=== PATIENT | female | born 1950 | race Caucasian/White ===

== ENCOUNTER 2018-03-23 19:02 | Emergency (ER) | payer MEDICARE, OTHER, SELFPAY ==
[2018-03-23 19:02] VITALS: BP 159/79; PULSE 73; RESP 18; TEMP 36.6; O2SAT 99; BMI 25.9
--- NOTE | 2018-03-23 19:06 | RAD_ITS ---
STUDY: X-RAY CHEST REASON FOR EXAM: Female, 68 years old. Chest pain TECHNIQUE: Frontal view of the chest COMPARISON: 07/16/2016 FINDINGS: The lungs are clear. There are no pleural effusions. There is no pneumothorax. The heart is normal in size. Again noted is a spinal stimulator electrode. RAD/Chest 1 View (Portable) IMPRESSION: No acute thoracic pathology. Electronically Signed: Rikki Nelson, at 19:58 EST Tel , Service support ,
--- NOTE | 2018-03-23 19:06 | EKG12_ITS ---
Test Reason : CHEST PAIN Blood Pressure : / mmHG Vent. Rate : 072 BPM Atrial Rate : 072 BPM P-R Int : 132 ms QRS Dur : 082 ms QT Int : 388 ms P-R-T Axes : 098 038 051 degrees QTc Int : 424 ms Normal sinus rhythm Nonspecific ST abnormality Abnormal ECG Confirmed by ALEXIS GONZALEZ, XENIA ([id number]), photograph editor REA FLOOD ([id number]) on 03/26/2018 1:31:08 PM Referred By: YARELIS Confirmed By:XENIA ESPINOZA MD
[2018-03-23 19:22] LABS: Absolute Lymphocyte Count 3.14 X10^3/ul (0.83-4.51); Absolute Neutrophil Count 5.3 X10^3/uL (2.0-7.7); Basophil# 0.03 X10^3/uL; Basophil% 0.3 % (0-1); Eosinophil# 0.14 X10^3/uL; Eosinophils% 1.5 % (0-5); Hematocrit 43.2 % (37-47); Hemoglobin 14.6 g/dl (12.0-15.0); Lymphocyte # 3.14 X10^3/ul (4.0); Lymphocyte % 33.6 % (19-41); Mean Corp Hgb Conc 33.8 g/gl (32-36); Mean Corpuscular Hgb 30.3 pg (27.0-32.0); Mean Corpuscular Volume 89.6 fL (81-99); Mean Platelet Vol. 9.2 fl (6.2-12.0); Monocyte# 0.68 X10^3/uL; Monocyte% 7.3 % (0-10); Neutrophil # 5.34 X10^3/uL (2.7-7.7); Neutrophil % 57.2 % (47-70); Platelet Count 235 K/mm3 (150-450); RBC Distribution Width CV 12.5 % (11.6-14.6); RBC Distribution Width SD 39.5 fl (35.1-43.9); Red Blood Count 4.82 M/mm3 (4.2-5.4); White Blood Count 9.3 K/mm3 (4.4-11.0)
[2018-03-23 19:26] LABS: POSITIVE COUNT NO; POSITIVE DIFFERENTIAL NO; POSITIVE MORPHOLOGY NO
[2018-03-23 19:44] VITALS: BP 154/70; PULSE 67; RESP 14; O2SAT 96; O2SAT 97
[2018-03-23 19:45] LABS: Anion Gap 7 (5-15); BUN 19 mg/dL (7-18); BUN/Creat Ratio 16.4 RATIO (10-20); Calcium,Total 8.8 mg/dL (8.5-10.1); Chloride 103 mmol/L (98-107); Creatinine, Serum 1.16 mg/dL (0.55-1.02); EST Glomerular Filtration Rate 50 mL/min (>60); Est Glom Filt Rate - Afr Amer 60 mL/min (>60); Estimated Creatinine Clearance 42.93 ml/min; Glucose 132 mg/dL (74-106); Potassium 3.8 mmol/L (3.5-5.1); Sodium Level 136 mmol/L (136-145)
[2018-03-23 20:11] VITALS: BP 134/63; PULSE 59; RESP 23; O2SAT 97
[2018-03-23] MEDS: Mag Hydrox/Al Hydrox/Simeth 30 ML UDC PO (20:38)
[2018-03-23] MEDS: 0.9% Normal Saline 1,000 ML 150 ML IV (20:38)
[2018-03-23 21:00] VITALS: BP 150/55; PULSE 56; RESP 16; O2SAT 100
--- NOTE | 2018-03-23 21:00 | CT_ITS ---
STUDY: CTA CHEST REASON FOR EXAM: Female, 68 years old. Chest pain radiating to the back and neck RADIATION DOSAGE (If Supplied By Facility): CTDIvol = ( 12.40 ) mGy, DLP = ( 421.27 ) mGycm TECHNIQUE: The examination was performed with the intravenous administration of 75ML ml of Isovue 370 contrast material. Post-processing of the angiographic images was performed, with multiplanar reformation and 3D reconstruction. Individualized dose optimization techniques were used for this CT. COMPARISON: None. FINDINGS: Normal enhancement of the main pulmonary artery and right and left pulmonary arteries. Normal enhancement of the bilateral peripheral pulmonary arteries. There is no demonstrated pulmonary embolism. There is atherosclerotic calcification of the aortic arch with tortuosity. There is no demonstrated aortic dissection. Normal heart and pericardium. Normal mediastinum. Normal hilar regions. Normal visualized trachea and bronchi. The lungs are well expanded. There are bandlike parenchymal changes most consistent with atelectasis of the bilateral lungs. Normal pleura. Normal chest wall structures. Mild spondylosis of the thoracic spine. Neurostimulator device noted. The gallbladder is surgically absent. CT/CTA Chest W/WO Contrast IMPRESSION: 1. No central or segmental pulmonary embolism. No evidence of thoracic aortic aneurysm or dissection. Electronically Signed: Demond Urbina MD at 21:56 EST , Service support ,
[2018-03-23 22:06] VITALS: BP 117/58; PULSE 74; RESP 15; O2SAT 98
--- NOTE | 2018-03-23 22:07 | ED.DCSUM_ITS ---
- ER Visit Summary Date of Service: 03/23/18 Chief Complaint: Chest pain History of Present Illness: The patient is a 68 F he describes frequent burning in her upper abdomen for the past 1 week that would improve with Pepcid. Tonight pain was worsened and radiated up into the left chest and her neck. It also radiated into her back. Patient states pain is worsened with food and not with exertion. Pain was worse when she was lying down today and she could not get comfortable. Past history significant for reflux disease, sleep apnea, hypertension, high cholesterol, and back pain. She has had prior cholecystectomy. Physical Examination: Vital signs are unremarkable. Patient sitting upright in bed. She is in no acute distress but does appear uncomfortable. She is holding her epigastric area. Head neck examination is normal. Heart is regular rate and rhythm. Lungs sounds are clear. Abdomen is soft with tenderness in epigastric region. No guarding or rebound. Back examination was tenderness in the left thoracic paraspinals. No overlying skin changes. Neuro exam is normal. Test Results: EKG is sinus at 72 with no sign of acute ischemia. CBC and chemistry studies are grossly unremarkable. Troponin is less than 0.015. Portable chest x-ray is unremarkable. CTA of the chest shows no evidence of PE or dissection. Emergency Department Course and Treatment: Patient was given a GI cocktail and had complete resolution of her pain. Pain is exacerbated by food and not by activity. She will be placed on Protonix and will continue to monitor her symptoms. Treatment Plan: [] Disposition: Discharge Impression: Chest pain secondary to reflux disease This note was generated with [employer] dictation software. It may contain incorrect words, spelling, and punctuation that were not noted in review of the chart prior to signing ED Disposition - Plan for ED Patient: Disposition: Home or Assisted Living Chief Complaint: Chest Pain Instructions: ED Chest Pain Atypical Unkn Cause, ED GERD Prescriptions: Pantoprazole Sodium [Protonix] 40 mg PO DAILY #30 tablet Referrals: Kenia Jain DO [Primary Care Provider] - 1 Week
[2018-03-23 22:16] VITALS: BP 117/55; PULSE 62; RESP 17; O2SAT 98
--- NOTE | 2018-03-23 22:17 | ED.RN ---
PT GIVEN WRITTEN AND VERBAL DISCHARGE INSTRUCTIONS AND HOME GOING PRESCRIPTIONS. PT EDUCATED ON USE AND SIDE EFFECTS. PT VERBALIZES UNDERSTANDING. IV D/C AND COVERED WITH 2X2 GAUZE AND PAPER TAPE. PT DRESSES SELF AND AMBULATES OUT OF DEPT WITH .
== END 2018-03-23 22:18 | disposition home or self-care (01) ==
PROVIDERS: Emergency Provider Emergency Medicine; Family Provider Internal Medicine; PCP Internal Medicine
DX: K21.9 Gastro-esophageal reflux disease without esophagitis (principal); E78.00 Pure hypercholesterolemia, unspecified; I10 Essential (primary) hypertension; Z90.49 Acquired absence of other specified parts of digestive tract; G47.33 Obstructive sleep apnea (adult) (pediatric)
CPT/HCPCS: 71045; 71275; 80048; 84484; 85025; 93005; 99285; J7030; Q9967; A4216

== ENCOUNTER → 2018-06-09 11:27 | Outpatient (CLI) | payer MEDICARE, OTHER, SELFPAY ==
--- NOTE | 2018-06-09 11:31 | BD_ITS ---
STUDY: DUAL ENERGY X-RAY ABSORPTIOMETRY / DXA REASON FOR EXAM: Female, 68 years old. The patient is postmenopausal. Loss of height. TECHNIQUE: Bone Mineral Density (BMD) measurements of lumbar spine and bilateral hips were obtained. COMPARISON: Comparison is made with prior study dated March 04, 2016 and May 17, 2013. FINDINGS: Lumbar Spine (L1-L4): g/cm2 (1.213) / T-score (0.3) / Z-score (1.9) Findings are suggestive of normal bone density with a low fracture risk. Left Femur Total: g/cm2 (1.077) / T-score (0.5) / Z-score (1.8) Left Femoral Neck: g/cm2 (0.942) / T-score (-0.7) / Z-score (0.8) Right Femur Total: g/cm2 (1.038) / T-score (0.2) / Z-score (1.5) Right Femoral Neck: g/cm2 (0.916) / T-score (-0.9) / Z-score (0.6) The T-Scores on the most recent prior examination were: Lumbar Spine (L1-L4): There has been worsening of bone density since the previous examination. Left Femur Total: which represents a worsening of 2.8%. Right Femur Total: which represents a worsening of 7%. BD/Dexa Bone Density Study IMPRESSION: The patient is considered normal as outlined below according to World Zak Organization (WHO) criteria with a low fracture risk. There has been worsening of bone density since the previous examination. Reference Information: The T-score is the number of standard deviations above or below the standard which is normal for young adults at their peak bone mineral density. The World Health Organization (WHO) interprets the T-scores as follows: Above -1 Normal bone density Between -1 and -2.5 Osteopenia Equal to / or below -2.5 Osteoporosis As a practical clinical guideline, osteopenia may be graded as follows: Mild -1 through -1.5 Moderate -1.6 through -2.0 Severe -2.1 through -2.4 The Z-score is the number of standard deviations above or below age-matched controls. A Z-score of less than -1.5 would be considered abnormal. References: 1. NIH Osteoporosis and Related Bone Diseases http://www.osteo.org 2. International Society for Clinical Densitometry http://www.iscd.org 3. National Osteoporosis Foundation http://www.nof.org Electronically Signed: Zhou Amaro MD at 10:30 EST , Service support ,
--- NOTE | 2018-06-09 11:31 | BI_ITS ---
MAMMOGRAPHY - BILATERAL SCREENING REASON FOR EXAM: Female, 68 years old. Routine annual screening examination. PERTINENT HISTORY: Grandmother with breast cancer. Remote left stereotactic breast biopsy. Chronic inversion of the left nipple. TECHNIQUE: Digital bilateral breast ivett (3D mammographic acquisition) in the CC and MLO projections. 2-D mediolateral oblique (MLO) and craniocaudad (CC) views of both breasts were obtained. CAD: Full Field Digital Mammography with Computer Added Detection was performed. COMPARISON: Comparison is made with prior study dated April 16, 2017 and March 04, 2016. FINDINGS: Breast Composition: The breasts are heterogeneously dense, which may obscure small masses. There are no dominant masses or suspicious calcifications. Stable small bilateral axillary lymph nodes. Stable bilateral microcalcifications. No other significant abnormalities are identified. There has been no significant change since the prior study. BI/SCREENING MAMM (CAD), BILAT IMPRESSION: Stable bilateral screening mammogram. Yearly follow-up mammogram recommended. (A) ASSESSMENT CATEGORY: BIRADS Category 2: Benign. A letter regarding these results will be sent to the patient by the facility within 30 days. Approximately 10% of breast cancers are not detected by mammography. A normal mammogram should not delay biopsy of a clinically suspicious abnormality. [id number] Electronically Signed: Zhou Amaro MD at 14:18 EST , Service support ,
== END ==
PROVIDERS: Family Provider Internal Medicine; PCP Internal Medicine; Referring Provider Internal Medicine; Visit Provider Internal Medicine
DX: Z12.31 Encounter for screening mammogram for malignant neoplasm of breast (principal); Z78.0 Asymptomatic menopausal state
CPT/HCPCS: 77063; 77067; 77080

== ENCOUNTER → 2019-06-10 09:41 | Outpatient (CLI) | payer MEDICARE, OTHER, SELFPAY ==
--- NOTE | 2019-06-10 09:43 | BI_ITS ---
MAMMOGRAPHY - BILATERAL SCREENING 3-D TOMOSYNTHESIS REASON FOR EXAM: Female, 69 years old. FM HX MAT GMA 72, LT STEREO BX 2006, LT NIPPLE ALWAYS INVERTED PERTINENT HISTORY: No significant family history. TECHNIQUE: 2-D mammograms and 3-D Tomosynthesis of the breast (s) were performed. CAD was performed. COMPARISON: None. FINDINGS: The breast composition is heterogeneously dense that can obscure small breast masses. Stable cluster of calcifications in the central lateral right breast. No new dense spiculated masses or suspicious microcalcifications are identified. No architectural distortion is identified. There is no skin thickening or retraction. There has been no significant change since the prior study. BI/SCREEN MAMM (CAD) W/ANGELINE BILAT IMPRESSION: No mammographic signs of malignancy. Routine yearly mammograms recommended. ASSESSMENT CATEGORY: BIRADS Category 2: Benign. A letter regarding these results will be sent to the patient by the facility within 30 days. FOLLOW UP RECOMMENDATION: Yearly follow up mammogram recommended. (A) Approximately 10% of breast cancers are not detected by mammography. A normal mammogram should not delay biopsy of a clinically suspicious abnormality. Electronically Signed: Tom Copeland MD at 13:03 EST , Service support ,
== END ==
PROVIDERS: PCP Internal Medicine; Referring Provider Internal Medicine; Visit Provider Internal Medicine
DX: Z12.31 Encounter for screening mammogram for malignant neoplasm of breast (principal)
CPT/HCPCS: 77063; 77067

== ENCOUNTER → 2020-06-14 09:16 | Outpatient (CLI) | payer MEDICARE, OTHER, SELFPAY ==
--- NOTE | 2020-06-14 09:19 | BI_ITS ---
MAMMOGRAPHY - BILATERAL SCREENING REASON FOR EXAM: Female, 70 years old. Routine annual screening examination. PERTINENT HISTORY: Grandmother with breast cancer. Remote left stereotactic breast biopsy. TECHNIQUE: Digital bilateral breast angeline (3D mammographic acquisition) in the CC and MLO projections. 2-D mediolateral oblique (MLO) and craniocaudad (CC) views of both breasts were obtained. CAD: Full Field Digital Mammography with Computer Added Detection was performed. COMPARISON: Comparison is made with prior study dated 06/10/2019 and 06/09/2018. FINDINGS: Breast Composition: The breasts are heterogeneously dense, which may obscure small masses. There are no dominant masses or suspicious calcifications. Stable benign-appearing bilateral axillary lymph nodes. Stable scattered bilateral calcifications. No other significant abnormalities are identified. There has been no significant change since the prior study. BI/SCRN MAMM (CAD)W/ANGELINE BILAT IMPRESSION: Stable bilateral screening mammogram. Yearly follow-up mammogram recommended. (A) ASSESSMENT CATEGORY: BIRADS Category 2: Benign. A letter regarding these results will be sent to the patient by the facility within 30 days. Approximately 10% of breast cancers are not detected by mammography. A normal mammogram should not delay biopsy of a clinically suspicious abnormality. [id number] Electronically Signed: Zhou Amaro MD at 8:55 EST , Service support ,
--- NOTE | 2020-06-14 09:25 | BD_ITS ---
STUDY: DUAL ENERGY X-RAY ABSORPTIOMETRY / DXA REASON FOR EXAM: Female, 70 years old. GROUNDSKEEPING MAINTENANCE WORKER- EARLY AT 39 YRS OLD -- HX OF HRT- CONTROL -- HX OF TAKING STEROID NASAL SPRAY -- HX OF TAKING ANTISEIZURE MEDS IN PAST -- TAKES CALCIUM, MULTIVITAMIN AND VIT D -- DOES MODERATE AMOUNT OF EXERCISE -- HX OF RIB FXS, WRIST FX, FOOT FX, HAND FX, AND HUMERAL FX -- HAS THORACIC SPINAL CORD STIMULATOR -- ELFEGO OF 0.25 INCH TECHNIQUE: Bone Mineral Density (BMD) measurements of lumbar spine and bilateral hips were obtained. COMPARISON: Comparison is made with prior study dated 06/09/2018. FINDINGS: Lumbar Spine (L1-L4): g/cm2 (1.206) / T-score (0.2) / Z-score (1.9) Findings are suggestive of normal bone density with a low fracture risk. Left Femur Total: g/cm2 (1.083) / T-score (0.6) / Z-score (2.0) Left Femoral Neck: g/cm2 (0.922) / T-score (-0.8) / Z-score (0.8) Right Femur Total: g/cm2 (1.068) / T-score (0.5) / Z-score (1.8) Right Femoral Neck: g/cm2 (0.927) / T-score (-0.8) / Z-score (0.8) The T-Scores on the most recent prior examination were: Lumbar Spine (L1-L4): There has been worsening of bone density since the previous examination. Left Femur Total: which represents an improvement of 0.6%. Right Femur Total: which represents an improvement of 2.9%. BD/Dexa Bone Density Study IMPRESSION: The patient is considered normal as outlined below according to World Zak Organization (WHO) criteria with a low fracture risk. Reference Information: The T-score is the number of standard deviations above or below the standard which is normal for young adults at their peak bone mineral density. The World Health Organization (WHO) interprets the T-scores as follows: Above -1 Normal bone density Between -1 and -2.5 Osteopenia Equal to / or below -2.5 Osteoporosis As a practical clinical guideline, osteopenia may be graded as follows: Mild -1 through -1.5 Moderate -1.6 through -2.0 Severe -2.1 through -2.4 The Z-score is the number of standard deviations above or below age-matched controls. A Z-score of less than -1.5 would be considered abnormal. References: 1. NIH Osteoporosis and Related Bone Diseases www osteo.org 2. International Society for Clinical Densitometry www iscd.org 3. National Osteoporosis Foundation www nof.org Electronically Signed: Zhou Amaro MD at 14:35 EST , Service support ,
== END ==
PROVIDERS: PCP Internal Medicine; Referring Provider Internal Medicine; Visit Provider Internal Medicine
DX: Z12.31 Encounter for screening mammogram for malignant neoplasm of breast (principal); Z78.0 Asymptomatic menopausal state
CPT/HCPCS: 77063; 77067; 77080

== ENCOUNTER 2020-07-05 15:27 | Outpatient (RCR) | payer MEDICARE, OTHER, SELFPAY ==
[2020-07-03 10:00] VITALS: BMI 26.6
[2020-07-05] MEDS: COVID-19 VACC, MRNA(PFIZER)/PF 30 MCG/0.3 ML SYRINGE IM (09:49)
[2020-07-26] MEDS: COVID-19 VACC, MRNA(PFIZER)/PF 30 MCG/0.3 ML SYRINGE IM (09:55)
== END 2020-07-05 23:59 ==
LOC: IMMUN 15:27
PROVIDERS: PCP Internal Medicine; Visit Provider Family Medicine
DX: Z23 Encounter for immunization (principal)
CPT/HCPCS: 0001A; 0002A

== ENCOUNTER → 2020-07-16 11:43 | Outpatient (CLI) | payer MEDICARE, OTHER, SELFPAY ==
[2020-07-03 10:00] VITALS: BMI 26.6
[2020-07-16 15:26] LABS: Absolute Neutrophil Count 3.8 X10^3/uL (2.0-7.7); Basophil# 0.06 X10^3/uL; Basophil% 0.8 % (0-1); Eosinophil# 0.25 X10^3/uL; Eosinophils% 3.5 % (0-5); Hematocrit 42.9 % (37-47); Hemoglobin 13.4 g/dL (12.0-15.0); Lymphocyte % 32.4 % (19-41); Mean Corp Hgb Conc 31.2 g/dL (32-36); Mean Corpuscular Hgb 27.4 pg (27.0-32.0); Mean Corpuscular Volume 87.7 fL (81-99); Mean Platelet Vol. 10.4 fl (6.2-12.0); Monocyte# 0.68 X10^3/uL; Monocyte% 9.6 % (0-10); NRBC Flagged by Analyzer 0 % (0-5); Neutrophil # 3.78 X10^3/uL (2.7-7.7); Neutrophil % 53.4 % (47-70); Platelet Count 273 K/mm3 (150-450); RBC Distribution Width CV 13.1 % (11.6-14.6); RBC Distribution Width SD 41.8 fl (35.1-43.9); Red Blood Count 4.89 M/mm3 (4.2-5.4); White Blood Count 7.1 K/mm3 (4.4-11.0)
[2020-07-16 15:41] LABS: ALB/GLOB Ratio 1.1 RATIO (0.9-2.4); AST(SGOT) 22 U/L (15-37); Alanine Aminotransfer ALT/SGPT 26 U/L (13-56); Alkaline Phosphatase 79 U/L (45-117); Anion Gap 4 (5-15); BUN 24 mg/dL (7-18); BUN/Creat Ratio 21.1 RATIO (10-20); Calcium,Total 9.2 mg/dL (8.5-10.1); Chloride 106 mmol/L (98-107); Creatinine, Serum 1.14 mg/dL (0.55-1.02); EST Glomerular Filtration Rate 50 mL/min (>60); Est Glom Filt Rate - Afr Amer 61 mL/min (>60); Globulin 3.7 g/dL (2.2-4.2); Glucose 87 mg/dL (74-106); Potassium 4.8 mmol/L (3.5-5.1); Protein, Total 7.7 g/dL (6.4-8.2); Sodium Level 138 mmol/L (136-145)
== END ==
PROVIDERS: PCP Internal Medicine; Visit Provider Family Medicine
DX: Z01.818 Encounter for other preprocedural examination (principal)
CPT/HCPCS: 36415; 80053; 85025

== ENCOUNTER 2020-07-20 11:17 | Day surgery (SDC) | payer MEDICARE, OTHER, SELFPAY ==
[2020-07-03 10:00] VITALS: BMI 26.6
--- NOTE | 2020-07-19 10:06 | EKG12_ITS ---
Test Reason : PREOP Blood Pressure : / mmHG Vent. Rate : 061 BPM Atrial Rate : 061 BPM P-R Int : 120 ms QRS Dur : 088 ms QT Int : 402 ms P-R-T Axes : -02 021 041 degrees QTc Int : 404 ms Normal sinus rhythm Normal ECG Confirmed by ALEXIS GONZALEZ, XENIA ([id number]), slot editor DEV MONSON ([id number]) on 07/20/2020 9:20:35 AM Referred By: Daphne Lester Confirmed By:XENIA ESPINOZA MD
--- NOTE | 2020-07-20 11:27 | OP.PCM_ITS ---
Problem List (1) Fracture of fifth metatarsal bone of left foot Status: Acute Qualifiers: Encounter type: initial encounter Fracture type: closed Fracture alignment: nondisplaced Qualified Code(s): S92.355A - Nondisplaced fracture of fifth metatarsal bone, left foot, initial encounter for closed fracture (2) Foot pain, left Status: Acute Report of Operation Date of Procedure: 07/20/20 Pre-Operative Diagnosis: left 5th metatarsal fracture. pain left foot Post-Operative Diagnosis: same Surgery/Procedure Performed:: ORIF left 5th metatarsal Description of Surgical Findings:: hemostasis: ankle tourniquet 250mmHg suture: 2-0, 3-0 vicryl, 4-0 vicryl, 4-0 nylon local: 1% lidocaine plain and 0.5% bupivacaine plain in a 1:1 mix 10cc and 10cc 0.5% bupivacaine materials: [employer] 6-hole straight plate, 2.4 millimeter kreulock screw sizes 10, 10, 12, 12 helpdesk manager: Daphne Lester - Surgeon: Daphne Lester DPM, school bus driver/teacher assistant: Madhuri Hensley PGY2 Type of Anesthesia:: General, Local Specimen's removed: none Estimated Blood Loss (mL): <10cc Description of Procedure: Indications for procedure: patient is a 70-year-old female who presents to the office with complaints pain in her left foot pain after tripping over a dog toy and falling. Patient presented to urgent care where she was noted to have a fracture to her right fifth metatarsal neck in oblique fashion. Is was discussed with the patient to either treat this conservatively or operatively. After discussion of patient's current activity level and outcomes it was determined that she would best be served with surgical management as the capital fragment had already shifted with some in rotation and she is a rather active individual. Discussed all risk benefits alternatives and complications including but not limited to infection, delayed healing, nonhealing, need for further surgery. No guarantees were given applied. Patient agreed to proceed with the procedure. Description of the procedure: Patient was seen in the preoperative holding area where the chart was reviewed and patient was examined and all questions were answered to patient satisfaction. Patient was then transported to the OR and placed on the OR table in supine position. After administration of general anesthesia a well-padded ankle tourniquet was applied to the operative ankle. The operative foot and ankle were then prepped and draped in usual sterile fashion. The operative foot was then elevated and exsanguinated with an Esmarch bandage and the ankle tourniquet was inflated to 250 mmHg and then lowered down into the sterile field. Attention was then directed to the dorsal lateral aspect of the fifth metatarsal where skin scribe was utilized to draw out a 5 cm incision over the fracture site. This was then deepened down with a #15 blade through the epidural and dural layers into the subcutaneous tissue with all vital neurovascular structures retracted or cauterized as necessary. The fracture was then visualized and was broken up with a Dubois elevator. A curette was introduced in order to remove any hematoma from the site. There was noted to be minimal comminution. The fracture was then temporarily fixated and rotated with fracture fragments realigned. This alignment was fixated with a plate and screws from [employer] with the materials noted above. These were placed following standard AO technique with manufacturers service representative in the room. There is good compression across the fracture site. Placement of all hardware and alignment of the fracture were confirmed under fluoroscopy x-ray. The fracture was noted to be reduced and alignment of the bone and maintenance of the joint space were obtained. Site was then flushed with copious amounts of normal sterile saline and then closed in a layered suture fashion with Vicryl for deep closure and nylon for skin closure. Local anesthetic was not injected of the above amount and a reverse Reis block type fashion. The site was then dressed with Betadine soaked Adaptic, 4 x 4's, Kerlix, cast padding, posterior splint and Cam wrap. The ankle tourniquet was deflated with a prompt brisk hyperemic response noted to patient's operative foot. Patient was then transferred from the OR to PACU with vital signs stable and vascular status intact. Patient will be discharged with the following written and oral postoperative instructions: 1 patient is to keep dressing clean, dry, and intact 2 patient is to follow-up in office in [address] Lester 3 patient take all medications as prescribed 4 patient is to be nonweightbearing to the operative limb 5 patient is to watch for signs of infection including nausea, fever, vomiting, chills, chest pain, or shortness of breath and if seen patient is contact doctor's office or the emergency room. Patient is also contact doctor's office if there is any questions or concerns. It should be noted that a significant portion of the above procedure was performed by the attending physician with basic simple parts such as closure performed by the resident physician under the direct supervision of the attending physician - Complications none - Admit VTE Documentation VTE Present on Admission: Yes VTE Mechan Device Prophylaxis: SCD's VTE Pharm Prophylaxis ordered?: No Reason prophylaxis not ordered:: Treatment Not Indicated
--- NOTE | 2020-07-20 11:29 | DCINST_ITS ---
Discharge Diet: No Restrictions Discharge Activity: Use Walker Weight Bearing Status: No weight bearing Keep extremity elevated above heart level: Operative Extremity Call your doctor if your incision/area has: Sudden Increased Bleeding, Increased Pain/ Swelling, Increased Redness, Foul Smelling Discharge Call your doctor if you observe: Fever of 101 or Higher, Numbness or Tingling, Shortness of breath, Dizziness, Fainting spells, Increased palpitations (irregular heartbeat), Calf discomfort, Uncontrolled pain Cleanse incision/area with: Keep Dressing Clean & Dry Allergies/Adverse Reactions: Allergies prochlorperazine [From Compazine] Allergy (Verified 07/20/20 11:57) Laryngospasms trimethobenzamide [From Tigan] Allergy (Verified 07/20/20 11:57) Laryngospasms Pertussis Vaccines Adverse Reaction (Verified 07/20/20 11:57) Hives novacaine Allergy (Severe, Uncoded 07/20/20 11:57) Other seizures Medications to take at Discharge Buspirone HCl [Buspar] 15 mg PO TID 01/08/16 L.acidoph,Paracasei, B.lactis [Probiotic] 1 each PO TID 01/08/16 Lisinopril [Zestril] 5 mg PO BID 01/08/16 Melatonin 10 mg PO QHS 01/08/16 Omeprazole 40 mg PO DAILY 03/23/18 Polyethylene Glycol 3350 [Miralax] 1 dose PO DAILY 03/23/18 Simvastatin [Zocor] 20 mg PO QHS 03/23/18 Albuterol Aerosols [Ventolin Aerosols] 2.5 mg INHALATION Q6H PRN PRN 07/17/20 Famotidine [Pepcid] 20 mg PO QHS 07/17/20 Magnesium Oxide [Magnesium] 800 mg PO DAILY 07/17/20 Oxycodone HCl/Acetaminophen [Percocet 5-325 mg Tablet] 1 each PO Q6H PRN PRN 7 Days #28 tablet 07/20/20 The following prescriptions were given: Oxycodone HCl/Acetaminophen [Percocet 5-325 mg Tablet] 1 each PO Q6H PRN PRN 7 Days #28 tablet PRN Reason: Pain Score 6-10 Transmission Status: Received by [facility] Primary Care Physician: Kenia Jain DO [Primary Care Provider] - Test Results: Test results from this visit will be discussed in further detail at your follow- up appointment, if applicable. Please Follow Up With: Daphne Lester DPM When: 1 week Proposed Discharge Date: 07/20/20
[2020-07-20 12:00] VITALS: BP 126/56; PULSE 64; RESP 16; TEMP 36.7; O2SAT 100; BMI 27.3
[2020-07-20] MEDS: Lactated Ringers 1,000 ML 100 ML IV ×2 (12:16→14:15)
--- NOTE | 2020-07-20 13:00 | RAD_ITS ---
STUDY: X-RAY - LEFT FOOT CLINICAL: Female, 70 years old. ORIF, METATARSAL 5TH LEFT TECHNIQUE: 3 view(s) of the foot. COMPARISON: 07/03/2020 FINDINGS: 33 seconds of fluoroscopy of the left foot was utilized and operating room during open reduction internal fixation of fracture of the distal shaft of the fifth metatarsal bone and 8 images are submitted for interpretation.. RAD/Foot min 3 Views IMPRESSION: Fluoroscopy during the surgery. Electronically Signed: Dirk Barth MD at 16:09 EDT Tel , Service support ,
[2020-07-20] MEDS: Cefazolin 2 GM in 0.9% Normal Saline 100 ML IV (13:10)
[2020-07-20] MEDS: Bupivacaine Mpf 0.5% 30 ML VIAL (14:33)
[2020-07-20 14:57] VITALS: BP 126/56; BP 128/81; PULSE 94; RESP 18; TEMP 36; O2SAT 99
[2020-07-20 15:00] VITALS: BP 126/56; BP 146/89; PULSE 85; RESP 18; O2SAT 98
--- NOTE | 2020-07-20 15:05 | RAD_ITS ---
EXAM: XR LEFT FOOT COMPLETE, 3 OR MORE VIEWS CLINICAL INDICATION: post op TECHNIQUE: Frontal, lateral and oblique views of the left foot. This report was created using [employer] report generation technology. COMPARISON: 07/20/2020. FINDINGS: BONES/JOINTS: Fifth metatarsal fixation plate and screws. Gross radiographic alignment. Small calcaneal spur. Preservation of the joint space. No sclerotic or destructive changes observed. SOFT TISSUES: Unremarkable. No soft tissue swelling or gas. No radiopaque foreign body. RAD/Foot min 3 Views IMPRESSION: Fifth metatarsal fixation plate and screws. Gross radiographic alignment. Electronically Signed: Demond Urbina MD ([place]) at 15:14 EDT , Service support ,
[2020-07-20 15:15] VITALS: BP 117/98; BP 126/56; PULSE 90; RESP 18; O2SAT 100
[2020-07-20 15:32] VITALS: BP 126/56; BP 128/74; PULSE 72; RESP 18; TEMP 36.6; O2SAT 99
[2020-07-20 16:20] VITALS: BP 126/56; BP 150/64; PULSE 83; RESP 16; TEMP 37.1; O2SAT 99
== END 2020-07-20 17:10 | disposition home or self-care (01) ==
LOC: SDC 11:18 → AC 11:20
PROVIDERS: PCP Internal Medicine; Referring Provider Podiatrist Foot & Ankle Surgery; Visit Provider Podiatrist Foot & Ankle Surgery
PROC: (CPT 28485; principal; 2020-07-20 12:45)
DX: S92.355A Nondisplaced fracture of fifth metatarsal bone, left foot, initial encounter for closed fracture (principal); W01.0XXA Fall on same level from slipping, tripping and stumbling without subsequent striking against object, initial encounter; M79.672 Pain in left foot; I10 Essential (primary) hypertension; E78.5 Hyperlipidemia, unspecified; K21.9 Gastro-esophageal reflux disease without esophagitis; F41.1 Generalized anxiety disorder
CPT/HCPCS: 28485; 73630; 76000; 87426; 93005; C1713; C9803; J7120; J2405

== ENCOUNTER → 2021-01-01 10:14 | Outpatient (CLI) | payer MEDICARE, OTHER, SELFPAY ==
[2021-01-01 10:30] LABS: Potassium 4.7 mmol/L (3.5-5.1)
== END ==
PROVIDERS: PCP Internal Medicine; Referring Provider Internal Medicine; Visit Provider Internal Medicine
DX: E87.5 Hyperkalemia (principal)
CPT/HCPCS: 84132

== ENCOUNTER 2021-07-19 11:04 | Outpatient (CLI) | payer MEDICARE, OTHER, SELFPAY ==
--- NOTE | 2021-07-19 11:10 | BI_ITS ---
MAMMOGRAPHY - BILATERAL SCREENING 3-D TOMOSYNTHESIS REASON FOR EXAM: Female, 71 years old. SCREENING PERTINENT HISTORY: No significant family history. TECHNIQUE: 2-D mammograms and 3-D Tomosynthesis of the breast (s) were performed. CAD was performed. COMPARISON: 06/14/2020 FINDINGS: The breast composition is heterogeneously dense that can obscure small breast masses. Scattered benign calcifications are seen. No dominant mass. Linear pleomorphic calcifications in the lower outer quadrant of the right breast at mid depth and magnification views recommended for further evaluation. No suspicious calcifications in the left breast.. No architectural distortion is identified. There is no skin thickening or retraction. BI/SCRN MAMM (CAD)W/ANGELINE BILAT IMPRESSION: Linear pleomorphic calcifications lower outer quadrant of the right breast at mid depth and magnification views are recommended for further evaluation. ASSESSMENT CATEGORY: BIRADS Category 0: Incomplete. Need additional imaging evaluation as above. A letter regarding these results will be sent to the patient by the facility within 30 days. FOLLOW UP RECOMMENDATION: Additional imaging recommended as above. (E) Approximately 10% of breast cancers are not detected by mammography. A normal mammogram should not delay biopsy of a clinically suspicious abnormality. Electronically Signed: Dirk Barth MD at 13:31 EDT ,
== END 2021-07-19 23:59 | disposition home or self-care (01) ==
PROVIDERS: PCP Internal Medicine; Referring Provider Internal Medicine; Visit Provider Internal Medicine
DX: Z12.31 Encounter for screening mammogram for malignant neoplasm of breast (principal)
CPT/HCPCS: 77063; 77067

== ENCOUNTER 2021-07-26 08:47 | Outpatient (CLI) | payer MEDICARE, OTHER, SELFPAY ==
--- NOTE | 2021-07-26 08:49 | BI_ITS ---
MAMMOGRAPHY - UNILATERAL DIAGNOSTIC: RIGHT BREAST REASON FOR EXAM: Female, 71 years old. Abnormal screening mammogram. PERTINENT HISTORY: Non-contributory. TECHNIQUE: Compression magnification views of the right breast were obtained. CAD: Full Field Digital Mammography with Computer Added Detection was performed. COMPARISON: Comparison is made with prior study of 07/19/2021. FINDINGS: Breast Composition: The breasts are heterogeneously dense, which may obscure small masses. The cluster microcalcification is once again seen in the lower outer quadrant of the right breast. Biopsy is recommended. No other significant abnormalities are identified. BI/DIAG MAMM W/CAD, UNILAT IMPRESSION: The cluster marked calcifications are once again seen in the lower outer quadrant of the right breast. Biopsy recommended. ASSESSMENT CATEGORY: BIRADS Category 4: Suspicious - Biopsy Should Be Considered. A letter regarding these results will be sent to the patient by the facility within 30 days. Approximately 10% of breast cancers are not detected by mammography. A normal mammogram should not delay biopsy of a clinically suspicious abnormality. Electronically Signed: Zhou Amaro MD at 10:57 EDT ,
== END 2021-07-26 23:59 | disposition home or self-care (01) ==
PROVIDERS: PCP Internal Medicine; Referring Provider Internal Medicine; Visit Provider Internal Medicine
DX: R92.8 Other abnormal and inconclusive findings on diagnostic imaging of breast (principal)
CPT/HCPCS: 77065

== ENCOUNTER 2021-08-05 10:13 | Outpatient (CLI) | payer MEDICARE, OTHER, SELFPAY ==
--- NOTE | 2021-08-05 | IMM_PTH ---
PATIENT: DANNY MINAYA LOC: [facility] U#:[id number] AGE/SX: 71/F ROOM: RE08/05/[address]: Dr. Maximo Childers MD : 1950 BED: DIS: 08/05/2021 SPEC #: [id number] RECD: 08/06/21 12:38 STATUS: DIETER REQ #: [id number] LUCIO: 08/05/21 00:[address]: Maximo Childers DEPT: IMMUNOHISTOCHEMISTRY RECD BY: Marline Finn ENTERED: 08/06/21 12:41 SP TYPE: IMMUNO OTHR DR: Dr. Kenia Jain DO Tissues: Right breast, NOS Procedures: CALPONIN-1 (add) CK8 (add) E-CAD (add) HER2 JOSLYN (add) NY (add) P40 (add) ER (initial) PHYSICIAN & INSTITUTION [place] [facility] [id number] SPECIMEN INFORMATION: Tissue Source: Right breast Clinical Info: Right breast LOQ microcalcifications Specimen Number: [id number] #1 & 2 CPT code: 03022, 17563 x5, 41217 x3 METHODOLOGY: Deparaffinized sections of prefer/formalin-fixed tissue or PAP/DQ stained slides are incubated with monoclonal/polyclonal antibodies/oligonucleotide probes. Localization is made via biotin free immunoperoxidase method. Appropriate controls are performed and reacted as expected. Results on target cell population are indicated in the following table: RESULTS: ANTIBODY / CLONE RESULT Block 1 Calponin-1 (UM198I) positive P40 (BC28) positive Block 2 E-Cad (ECH-6) positive CK8 (57treqP25) positive Calponin-1 (TU054P) positive P40 (BC28) positive MORPHOMETRIC ANALYSIS ER (clone 6F11) positive (93%, weak to moderate intensity) NY (clone 16/1E2) negative (0%) Her-2Neu (clone CB11) positive (3+) The prognostic test for HER2 is performed on formalin-fixed paraffin embedded tissue. A 3+ (positive) staining pattern is defined as intense, homogeneous, complete, circumferential membranous staining in >10% of contiguous tumor cells. A similar weak (2+) staining pattern is interpreted as equivocal. SABIHA follow-up testing is recommended for all equivocal cases. Positivity/negativity for ER/NY is reported if > or < 1% of the tumor cells are immuno- reactive, respectively. The ASCO/CAP criteria is used for scoring. Reference: Journal of Clinical Oncology, 2013; 31:4708-2606 & 2010; 16:1908-4069. Duration of fixation: 8.5 Hrs; Sample Adequate: Yes. These assays have not been validated on decalcified tissues. Results should be interpreted with caution given the likelihood of false negativity on decalcified specimens. These tests were developed and their performance characteristics determined by [facility]. They may not have been cleared or approved by the U.S. Food and Drug Administration. The FDA has determined that such clearance or approval is not necessary. The above immunohistochemical/dualISH markers are ordered and reviewed by the Pathologist. INTERPRETATION: Right breast, lower outer quadrant microcalcifications, stereotactic needle core biopsy: Ductal carcinoma in situ. Focal adenosis with atypia. SJ:ari 08/07/2021
--- NOTE | 2021-08-05 11:10 | BRBX_PTH ---
PATIENT: DANNY MINAYA LOC: [facility] U#:[id number] AGE/SX: 71/F ROOM: RE08/05/[address]: Dr. Maximo Childers MD : 1950 BED: DIS: 08/05/2021 SPEC #: [id number] RECD: 08/05/21 11:22 STATUS: DIETER REKavon #: [id number] LUCIO: 08/05/21 11:[address]: Maximo Childers DEPT: SURGICAL PATHOLOGY RECD BY: Zehra Garvey ENTERED: 08/05/21 12:31 SP TYPE: BREAST BX OTHR DR: Dr. Kenia Jain, DO Tissues: Right breast, NOS Procedures: Surgery Specimen Level IV HEADER OPERATION: Right breast stereotactic needle core biopsy PRE-OP DIAGNOSIS: Right breast LOQ microcalcifications TISSUE SUBMITTED: Right breast core tissue ISCHEMIC TIME: 1 minute FIXATION TIME: 8.5 hours MICROSCOPIC DIAGNOSIS Right breast, lower outer quadrant microcalcifications, stereotactic needle core biopsy: Ductal carcinoma in situ with the follow features: Architecture pattern ? solid and comedo. Nuclear grade ? grade 3/3 Necrosis ? present, central (expansive comedo necrosis). Calcifications ? present Additional findings ? fibrocystic changes and intraductal hyperplasia without atypia. - Focal adenosis with atypia. See comment. SJ:ari 08/06/2021 COMMENT Immunohistochemistry ([id number]) supports the above diagnosis. Case has been reviewed in consultation with Dr. Nixon who concurs with the above diagnosis. IDC:AM MICROSCOPIC DESCRIPTION Slides are reviewed. GROSS DESCRIPTION Received is one container labeled with the patient's name and not further designated. The specimen consists of multiple irregular and elongated fragments of light sanchez soft tissue that in aggregate measure 4.5 x 4 x 0.2 cm. The specimen is totally submitted in two cassettes. / AM:ari 08/05/2021 TC:0 CPT: 81855 ADDENDUM ADDENDUM ADDENDUM ADDENDUM ADDENDUM ADDENDUM ADDENDUM ADDENDUM ADDENDUM ADDENDUM ADDENDUM ADDENDUM 11/27/2021 10:02 ADDENDUM 11/27/2021 10:02 ADDENDUM 11/27/2021 10:02 ADDENDUM 11/27/2021 10:02 ADDENDUM 11/27/2021 10:02 This addendum is added to incorporate an outside pathology consultation report. The case was examined at [facility] (#[id number]) and the following diagnosis was rendered. Right breast, lower outer quadrant microcalcifications, stereotactic needle core biopsy: Ductal carcinoma in situ, solid type, of high unclear nuclear grade and with central necrosis. Microcalcifications in DCIS. Please see complete above mentioned consultation report in EMR
--- NOTE | 2021-08-05 11:11 | HP.PCM_ITS ---
History and Physical Date of Admission: 08/05/21 HISTORY AND PHYSICAL - BREAST COMPLAINT ? Gabby Elizabeth 1950 ? ? REFERRING PHYSICIAN: Kenia Jain,* ? CHIEF COMPLAINT: Microcalcifications of the breast (primary encounter diagnosis) ? HPI: The patient is a 71 year old female with a complaint of an abnormal mammogram. The patient had a mammogram without ultrasound on 07/26/21 which demonstrated BI-RADS Category 4 right breast microcalcifications in the lower outer quadrant of the breast: ? ? The patient denies a history of breast masses. She does perform a self breast exam routinely. She notes no skin changes. She denies nipple discharge. She notes no axillary masses. She notes no family history of breast problems. She notes no significant breast trauma or breast difficulties in the past. ? The patient is being seen by me today at the request of Dr. Kenia Jain, DO, DO for my opinion and advice regarding Microcalcifications of the breast (primary encounter diagnosis). ? PAST MEDICAL HISTORY PAST MEDICAL HISTORY Diagnosis Date ? Acid reflux ? ? Endometriosis, site unspecified ? ? Endometriosis ? Pure hypercholesterolemia 12/02/2004 ? Unspecified essential hypertension 12/02/2004 ? ? PAST SURGICAL HISTORY PAST SURGICAL HISTORY Procedure Laterality Date ? COLONOSCOPY FLX DX W/COLLJ SPEC WHEN PFRMD ? 07/24/2006 ? LAPAROSCOPY SURG CHOLECYSTECTOMY ? 05/12/2006 ? Cholecystectomy, lap ? PAST SURGICAL HISTORY OF ? 05/04/1988 ? tubal -removal of left ovary and fallopian tube ? PAST SURGICAL HISTORY OF Left 2020 ? foot ? ? ? CURRENT MEDICATIONS Current Outpatient Medications Medication Sig Dispense Refill ? lisinopril (ZESTRIL, PRINIVIL) 5 mg tablet Take 5 mg by mouth once daily. ? omeprazole (PRILOSEC) 40 mg capsule Take 40 mg by mouth once daily. ? nystatin (MYCOSTATIN) powder nystatin 100 unt/mg topical powder (20 sources) Polyene Antifungal Start: 04-13-2020 ? ? ? Cholecalciferol, Vitamin D3, 125 mcg (5,000 unit) cap Take by mouth q 24 HR. ? ? ? bimatoprost (LATISSE) 0.03 % ophthalmic solution bimatoprost 0.3 mg/ml topical solution (20 sources) Prostaglandin Analog ? ? ? famotidine (PEPCID) 20 mg tablet Take 20 mg by mouth once daily. ? ? ? polyethylene glycol 3350 (MIRALAX ORAL) Take by mouth. ? ? ? ALBUTEROL 90 MCG/ACTUATION AEROSOL INHALER Inhale one(1) - two(2) puffs four(4) times a day as needed for wheezing and shortness of breath. ? 0 ? mometasone furoate(NASONEX 50 MCG/ACTUATION SPRAY) Take one(1) tablet daily. ? 0 ? BUSPIRONE 15 MG TAB Take one(1) tablet three times daily. ? 0 ? ezetimibe-simvastatin (VYTORIN 10/20) 10-20 mg ORAL Tab Take by mouth. 20 mg daily ? ? 0 ? pregabalin(LYRICA 75 MG CAP) 150mg 2 xday (Patient not takinmg 2 xday) ? 0 ? tiotropium bromide(SPIRIVA WITH HANDIHALER 18 MCG & INHALATION CAPS) Take one(1) tablet daily. (Patient not taking: Take one(1) tablet daily. ) ? 0 ? levocetirizine dihydrochloride(XYZAL 5 MG TAB) Take one(1) tablet daily. (Patient not taking: Take one(1) tablet daily. ) ? 0 ? meloxicam (MOBIC) 7.5 mg ORAL Tab Take one(1) tablet daily. (Patient not taking: Take one(1) tablet daily.) ? 0 ? duloxetine (CYMBALTA) 60 mg ORAL CpDR two (2) tablets daily (Patient not taking: two (2) tablets daily) ? 0 ? metoprolol succinate XL (TOPROL XL) 50 mg ORAL Tb24 Take one(1) tablet daily. (Patient not taking: Take one(1) tablet daily.) ? 0 ? esomeprazole (NEXIUM) 40 mg ORAL CpDR Take one(1) capsule daily. (Patient not taking: Take one(1) capsule daily.) ? 0 ? No current facility-administered medications for this visit. ? ? ALLERGIES: Compazine [Prochlorperazine Edisylate], Novacaine [Procainamide], and Tigan [Trimethobenzamide Hcl] ? PERSONAL HISTORY: SOCIAL HISTORY Social History ? Tobacco Use ? Smoking status: Never Smoker ? Smokeless tobacco: Never Used Vaping Use ? Vaping Use: Never used Substance Use Topics ? Alcohol use: Yes ? ? Comment: occasional ? Drug use: No ? FAMILY HISTORY: FAMILY HISTORY FAMILY HISTORY Problem Relation Age of Onset ? Hypertension Mother ? ? other (Other) Mother ? ? abdominal aneurysm ? Heart Father ? ? PTCA x3 ? Cancer Maternal Grandmother ? ? ? REVIEW OF SYMPTOMS: The review of systems data was entered by the nurse and reviewed by me ? Nursing Notes: May PhillipsCLAIR 07/29/2021 2:59 PM Signed REVIEW OF SYSTEMS: General: The patient denies fatigue, denies weight loss, denies weight gain, denies feeling hot, and denies feelings of cold. Eyes: The patient denies glaucoma, denies eye injury/surgery, wears glasses or contacts. Ear/Nose/Throat: The patient notes allergies, notes hayfever, denies ear infections, and denies bloody noses. Cardiovascular: The patient denies chest pain, denies heart disease, notes high blood pressure,denies cardiac stent, denies prior heart attack, denies irregular heart beat, notes high cholesterol, denies poor circulation, denies heart failure, other cardiac issues, denies claudication, denies cold feet, denies peripheral arterial stent. Respiratory: The patient denies tuberculosis, denies pneumonia, denies frequent cough, denies pulmonary embolism, denies shortness of breath, and denies coughing up blood. Gastrointestinal: The patient denies difficulty swallowing, notes acid reflux, denies ulcers, denies vomiting, denies jaundice/hepatitis, denies gallbladder problems, denies black or tarry stools, denies hemorrhoids, denies bleeding from rectum, denies diverticulitis, denies constipation, denies diarrhea, denies loss of stool control, and denies hernias. Kidney/Bladder: The patient denies kidney stones, denies urine infections, and denies bloody urine. Skin: The patient denies a history of skin cancer, denies bleeding/changing moles, and denies a history of skin rash. Neurologic: The patient denies a history of epilepsy/convulsions, denies headaches, denies head/spinal injuries, and denies stroke/TIA. Psychiatric: The patient denies psychiatric medications, denies depression, and denies voices, denies substance abuse. Endocrine: The patient denies thyroid disorders, denies diabetes, and denies hormonal problems. Hematologic: The patient denies a history of bruising, denies bleeding, and denies anemia, denies blood clots. Infections: The patient denies a history of measles and mumps, denies rheumatic fever, and denies sexually transmitted diseases. Musculoskeletal: The patient notes back pain/injury, notes back problems, denies sciatica, denies knee/foot trouble, denies arthritis, or denies gout. ? ? When was patient's last Mammogram screening? 2021 ? Last Colonoscopy: 2019 ? May Phillips LPN ? PHYSICAL EXAMINATION: ? General: The patient is 71 year old female, well nourished, well hydrated in no acute distress. The patient is oriented to time, place, and person. ? VITALS: Blood pressure 112/60, pulse 70, temperature 36 ?C (96.8 ?F), height 165.1 cm (5' 5), weight 76.7 kg (169 lb), SpO2 98 %. Body mass index is 28.12 kg/m?. ? HEENT: Normal cephalic, ataumatic, pupils are equally round, sclera are anicteric, mucous membranes are moist, oropharynx is clear. Neck has no masses, asymmetry or lymphadenopathy. Thyroid is unremarkable. ? Respiratory: Clear to auscultation and percussion. Normal respiratory excursion and pattern. ? Cardiac: Examination is regular rate and rhythm. ? Abdominal exam: Soft, nontender, with no palpable masses. No hepatospl enomegaly. No palpable hernias. ? Rectal exam: exam deferred Extremities: no clubbing, cyanosis or edema. No adenopathy. ? Breast: Visual inspection reveals no retractions, nipple inversion, or skin changes. Palpation of the right breast reveals no dominant or suspicious masses, but multiple benign-feeling nodules. Palpation of the left breast reveals no dominant or suspicious masses, but multiple benign-feeling nodules. Axillary exam demonstrates no suspicious masses in either the left or right axilla. There is no nipple discharge expressed from either the left or right breast. ? LABORATORY VALUES: As Noted ? RADIOLOGIC STUDIES: As Noted ? Assessment IMPRESSION: Microcalcifications of the breast (primary encounter diagnosis) ? PLAN: I plan to perform a stereotactic biopsy of the right breast. The planned surgical procedure was discussed extensively with the patient. The risks, benefits, anticipated outcomes and possible complications were mentioned. My staff has also explained the procedure in understandable terms and the patient was given the option to take printed material concerning the planned procedure. The patient had the opportunity to ask questions concerning the planned procedure. The patient freely consents to the planned procedure. ? ? Diagnoses: (R92.0) Microcalcifications of the breast (primary encounter diagnosis) ? A letter was sent to Dr. Kenia Jain, DO, DO indicating the above finding for this patient. ? Return to Clinic: The patient is instructed to follow-up with me 1 week post operatively. ? COVID (Procedure Consent) Procedure Criteria ? Procedure Criteria: Yes Elective The surgeon/proceduralist and patient have discussed in detail the risk of exposure to and/or potential harm posed by the COVID-19 virus with having a surgery/procedure at this time versus the risk of? delaying the surgery/procedure. It is not possible to know either the risk of delaying the surgery or procedure or chance of getting an infection with perfect accuracy, but a joint decision was made between the patient and the surgeon/proceduralist ?to proceed at this time with the scheduled surgery/procedure as indicated on the consent form. ? ? Maximo Childers III, MD I have re-examined the patient. There are no clinical changes since date of exam.
--- NOTE | 2021-08-05 11:12 | PCM.OPRPT ---
Problems Associated Problem List Diagnoses (1) Microcalcifications of the breast: Report of Operation Date of Procedure: 08/05/21 Pre-Operative Diagnosis: Microcalcifications right breast Post-Operative Diagnosis: Same Surgery/Procedure Performed:: Right stereotactic breast biopsy Surgeon: Maximo Childers senior graphic designer: None Type of Anesthesia: Local Estimated Blood Loss (mL): < 25 cc Description of Procedure: Patient was brought into the mammography unit placed prone on the fissure table right breast was brought down through the opening. Lateral to medial view was obtained. Microcalcifications were identified ?10 degree views were obtained. I targeted on the microcalcifications. Prepped the breast with Betadine. Injected 1% lidocaine plain. Made a skin carson placed a needle in the prefire position took 2 more stereo views showing the area to be adequately targeted. Fired the needle took 360 degrees circumferential biopsies. I x-rayed the specimen microcalcifications were identified. I backed the needle off 7 mm placed a small Gelfoam titanium clip into the biopsy cavity. Pressure was applied Steri-Strips were applied sterile dressings were applied patient was taken out standard mammograms were obtained. Admit VTE Documentation VTE Present on Admission: No VTE Mechan Device Prophylaxis: SCD's VTE Pharm Prophylaxis ordered?: No Reason prophylaxis not ordered:: Treatment Not Indicated
== END 2021-08-05 23:59 | disposition home or self-care (01) ==
PROVIDERS: PCP Internal Medicine; Visit Provider Surgery
DX: D05.11 Intraductal carcinoma in situ of right breast (principal); R92.0 Mammographic microcalcification found on diagnostic imaging of breast; R55 Syncope and collapse; R11.2 Nausea with vomiting, unspecified; D64.9 Anemia, unspecified; N64.59 Other signs and symptoms in breast
CPT/HCPCS: 19081; 71045; 80048; 84484; 85025; 88305; 88341; 88342; 93005; 99282; 99285; J7050; A4216; A4648

== ENCOUNTER 2021-08-05 14:32 | Emergency (ER) | payer MEDICARE, OTHER, SELFPAY ==
[2021-08-05 14:33] VITALS: BP 141/66; PULSE 71; RESP 16; TEMP 36; O2SAT 97; BMI 27.3
--- NOTE | 2021-08-05 15:12 | EX.ED.DYSGE1 ---
HPI History of Present Illness Chief Complaint: Wound Informant: patient Narrative Narrative: Patient presents secondary to bleeding from breast biopsy site. She had a breast biopsy performed this morning. After waking from a nap she noted significant bleeding. Dr. Childers did call in asking us to check the wound. If there was a significant hematoma or continued bleeding he may need to take the patient back to the OR. PFSH PFS Medical History Anxiety Spinal cord stimulator status Home Medications good Chen B. lactis 1 ea PO TID 01/08/16 [History Last Taken Unknown] buspirone 15 mg PO TID 01/08/16 [History Last Taken 07/20/20] lisinopril 5 mg PO BID 01/08/16 [History Last Taken 07/20/20] melatonin 10 mg PO QHS 01/08/16 [History Last Taken Unknown] omeprazole 40 mg PO DAILY 03/23/18 [History Last Taken 07/20/20] polyethylene glycol 3350 1 dose PO DAILY 03/23/18 [History Last Taken Unknown] simvastatin 20 mg PO QHS 03/23/18 [History Last Taken Unknown] albuterol sulfate 2.5 mg INHALATION Q6H PRN PRN 07/17/20 [History Last Taken Unknown] famotidine 20 mg PO QHS 07/17/20 [History Last Taken Unknown] magnesium oxide 800 mg PO DAILY 07/17/20 [History Last Taken Unknown] Allergy/AdvReac Type Severity Reaction Status Date / Time prochlorperazine Allergy Laryngospas Verified 08/05/21 14:36 [From Compazine] ms trimethobenzamide Allergy Laryngospas Verified 08/05/21 14:36 [From Tigan] ms Pertussis Vaccines AdvReac Hives Verified 08/05/21 14:36 novacaine Allergy Severe Other Uncoded 08/05/21 14:36 Surgical History Hx laparoscopic cholecystectomy Hx of breast biopsy Hx of unilateral salpingectomy Social History Smoking Status: Never smoker alcohol intake: current details: social substance use type: does not use caffeine: Yes seatbelt use: always do you feel safe at home: Yes additional social history: retired ROS ROS ED Constitutional Constitutional ED: Denies chills or fever(s) Eyes Eyes: Denies change in vision ENT ENT ED: Denies sore throat Cardiovascular Cardiovascular: Denies chest pain Respiratory/Chest Respiratory/Chest: Denies cough or dyspnea Gastrointestinal Gastrointestinal: Denies abdominal pain, nausea or vomiting Musculoskeletal Musculoskeletal: Denies back pain Integumentary Reports other Details: Hematoma ; Denies rash Neurologic Neurologic: Denies headache(s) or weakness Allergic/Immunologic Allergic/Immunologic ED: Denies urticaria EXAM Physical Exam Const Vital Signs: 08/05/21 14:33 Temperature 96.8 F L Temperature Source Oral Pulse Rate 71 Respiratory Rate 16 Blood Pressure 141/66 H Blood Pressure Mean 91 Pulse Ox 97 Oxygen Delivery Method Room Air Positive well nourished and well developed General Appearance ED: well developed HEENT Reports moist mucous membranes Eyes PERRL and EOMs intact bilaterally Neck supple Chest Wall Chest Narrative: Hematoma noted on the lateral right breast. Hematoma measures approximately 10 cm in diameter. No active bleeding at the surgical site at this time. Resp normal respiratory effort and clear to auscultation bilaterally Cardio regular rate and regular rhythm GI normal to inspection, nondistended, normoactive bowel sounds and non-tender Palpation: soft Extremity normal to inspection Neuro oriented x3 Sensorium / Orientation: alert MDM MDM MDM Narrative Medical decision making narrative: New dressing is placed over the biopsy site. Border of hematoma marked with surgical marker so we can monitor for any expansion. Treatment and Re-Evaluation Narrative: After 45 minutes wound is rechecked. No significant expansion of the hematoma. Dressing over the wound site is clean. I spoke with Dr. Childers. Patient is okay to go home. He did stress that if the patient has any worsening of symptoms she is to call him immediately. She voices understanding and agreement. Discharge Plan Triage Chief Complaint: Wound ED Provider: Cherelle Escobar Dx/Rx/DC Orders Clinical Impression: Visit for wound check, Hematoma Instructions: ED Hematoma Prescriptions: No Action buspirone 30 MG tablet 15 mg PO TID RF: 0 lisinopril 5 MG tablet 5 mg PO BID RF: 0 melatonin 10 MG capsule 10 mg PO QHS RF: 0 L.acidoph, paracasei,B. lactis 1 EACH capsule 1 ea PO TID RF: 0 polyethylene glycol 3350 17 GM Packet 1 dose PO DAILY RF: 0 omeprazole 40 MG Capsule.Dr 40 mg PO DAILY RF: 0 simvastatin 20 MG tablet 20 mg PO QHS RF: 0 famotidine 20 MG tablet 20 mg PO QHS RF: 0 magnesium oxide 400 MG tablet 800 mg PO DAILY RF: 0 albuterol sulfate 2.5 MG/3 ML solution for nebulization 2.5 mg INHALATION Q6H PRN PRN (Reason: Asthma) RF: 0 Primary Care Provider: Kenia Jain Referrals: Maximo Childers MD [STAFF PHYSICIAN] - Keep Patel appointment Kenia Jain DO [Primary Care Provider] - Disposition Disposition: Home, Self Care
--- NOTE | 2021-08-05 15:44 | ED.RN ---
NO BLEEDING NOTED. NO INCREASED BRUISING BEYOND SKIN PEN MARKINGS.
== END 2021-08-05 16:01 | disposition home or self-care (01) ==
PROVIDERS: Emergency Provider Emergency Medicine; PCP Internal Medicine; Visit Provider Emergency Medicine
DX: Z48.00 Encounter for change or removal of nonsurgical wound dressing (principal)
CPT/HCPCS: 99282

== ENCOUNTER 2021-08-05 19:27 | Emergency (ER) | payer MEDICARE, OTHER, SELFPAY ==
[2021-08-05 19:28] VITALS: BP 144/56; PULSE 58; RESP 17; TEMP 36.3; O2SAT 94; BMI 27.1
[2021-08-05 19:50] VITALS: BP 122/50; PULSE 68; RESP 15; O2SAT 98
--- NOTE | 2021-08-05 19:51 | EKG12_ITS ---
Test Reason : N/V Blood Pressure : / mmHG Vent. Rate : 059 BPM Atrial Rate : 059 BPM P-R Int : 150 ms QRS Dur : 092 ms QT Int : 440 ms P-R-T Axes : 050 040 050 degrees QTc Int : 435 ms Sinus bradycardia Otherwise normal ECG Confirmed by ANNABELLA GONZALEZ, ELDON ([id number]), news videotape editor AVELINO CAPONE ([id number]) on 08/08/2021 11:28:15 AM Referred By: ASPEN Confirmed By:ELDON WINCHESTER MD
[2021-08-05 19:53] VITALS: O2SAT 96
--- NOTE | 2021-08-05 20:02 | EX.ED.DYSGE1 ---
HPI History of Present Illness Chief Complaint: Nausea/Vomiting Informant: patient and spouse/S.O. Narrative Narrative: Patient had a near syncopal episode at home. Patient had gone in for a breast biopsy on the right side this morning. After she went home she had some bleeding. She had dressings applied and then she was seen here. She was watched for an hour or so. Dressings were applied. There is no further bleeding. The edges of hematoma were outlined. Patient went home and she was feeling well. She did take medicines at home but it was just Pepcid and buspirone which she has been on for a long time. Only medicine for blood pressure is lisinopril which was taken this morning. She is not on beta-blockers. She also took some vitamins. She had also just eaten. She was sitting on the couch and she started to feel somewhat lightheaded. She felt her vision was getting frias and she was about to pass out. She did get nauseated but no vomiting. No shortness of breath. No chest pain or palpitations. Her states that she also got a little diaphoretic. He was able to talk to her and she did not go completely out but was close. When she was back up she was feeling better but still had some mild nausea. She was given Zofran by EMS and is feeling better now. There has not been no further bleeding from the breast area. The dressing has 1 small spot of blood about 1 to 2 mm around. She has no other complaints and is feeling a bit better now. [facility] Medical History Anxiety Spinal cord stimulator status Home Medications good Chen B. lactis 1 ea PO TID 01/08/16 [History Last Taken Unknown] buspirone 15 mg PO TID 01/08/16 [History Last Taken 07/20/20] lisinopril 5 mg PO BID 01/08/16 [History Last Taken 07/20/20] melatonin 10 mg PO QHS 01/08/16 [History Last Taken Unknown] omeprazole 40 mg PO DAILY 03/23/18 [History Last Taken 07/20/20] polyethylene glycol 3350 1 dose PO DAILY 03/23/18 [History Last Taken Unknown] simvastatin 20 mg PO QHS 03/23/18 [History Last Taken Unknown] albuterol sulfate 2.5 mg INHALATION Q6H PRN PRN 07/17/20 [History Last Taken Unknown] famotidine 20 mg PO QHS 07/17/20 [History Last Taken Unknown] magnesium oxide 800 mg PO DAILY 07/17/20 [History Last Taken Unknown] Allergy/AdvReac Type Severity Reaction Status Date / Time prochlorperazine Allergy Laryngospas Verified 08/05/21 19:32 [From Compazine] ms trimethobenzamide Allergy Laryngospas Verified 08/05/21 19:32 [From Tigan] ms Pertussis Vaccines AdvReac Hives Verified 08/05/21 19:32 novacaine Allergy Severe Other Uncoded 08/05/21 19:32 Surgical History Hx laparoscopic cholecystectomy Hx of breast biopsy Hx of unilateral salpingectomy Social History Smoking Status: Never smoker alcohol intake: current details: social substance use type: does not use caffeine: Yes seatbelt use: always do you feel safe at home: Yes additional social history: retired ROS ROS ED Constitutional Constitutional ED: Denies chills or fever(s) Eyes Eyes: Reports other Details: Graying of vision during episode ENT ENT ED: Denies rhinorrhea Cardiovascular Cardiovascular: Denies chest pain, palpitations or racing heartbeat Respiratory/Chest Respiratory/Chest: Denies cough or dyspnea Gastrointestinal Gastrointestinal: Reports nausea; Denies abdominal pain or vomiting Genitourinary Genitourinary ED: Denies dysuria Musculoskeletal Musculoskeletal: Denies myalgias Integumentary Reports other Details: No further bleeding ; Denies rash Neurologic Neurologic: Denies headache(s), paresthesias or weakness Psychiatric Psychiatric: Denies anxiety or depression Endocrine Endocrinology: Denies polydipsia or polyuria Allergic/Immunologic Allergic/Immunologic ED: Denies urticaria EXAM Physical Exam Const Vital Signs: 08/05/21 19:28 08/05/21 19:50 08/05/21 19:53 Temperature 97.3 F L Temperature Source Oral Pulse Rate 58 L 68 Respiratory Rate 17 15 Blood Pressure 144/56 H 122/50 H Blood Pressure Mean 85 74 Pulse Ox 94 98 96 Oxygen Delivery Method Room Air Room Air Room Air 08/05/21 21:22 Temperature Temperature Source Pulse Rate 71 Respiratory Rate 14 Blood Pressure 119/57 L Blood Pressure Mean 77 Pulse Ox 99 Oxygen Delivery Method Room Air Positive well nourished and well developed Constitutional Narrative: Patient does not look pale. She is not diaphoretic at this time. General Appearance ED: well developed and NAD; Negative for cyanotic HEENT Reports moist mucous membranes Negative for trauma or tenderness Eyes General Eye ED: Negative for pale conjunctiva Neck no JVD Chest Wall inspection of chest normal Cardio regular rate, regular rhythm and no murmurs GI normal to inspection, nondistended, normoactive bowel sounds and non-tender Palpation: soft Back/Spine no CVA tenderness Extremity normal to inspection Neuro oriented x3, CN's II-XII intact bilaterally and no sensory deficits noted Sensorium / Orientation: alert Motor Exam: strength 5/5 throughout Psych mental status grossly normal Skin no rashes or lesions noted MDM MDM MDM Narrative Medical decision making narrative: Patient blood work does show some mild anemia. However, with surgical procedure and bleeding this is not unexpected. She has been rechecked again and there is still no bleeding at this time. Her bandage is clean and dry other than that one very tiny spot of blood. Her hematoma is not expanding. The breast is not enlarging. She has been up walking around and asymptomatic. First troponin is negative. Repeat troponin is negative also. Chest x-ray is negative. Patient feels well. She would like to go home. I think this is reasonable. I think her episode occurred due to multiple reasons including some mild blood loss that seems to have stopped. Lab Data Attestation: I reviewed the patient's lab results. Labs: Laboratory Results - last 24 hr 08/05/21 08/05/21 08/05/21 20:42 20:42 23:00 WBC 10.1 RBC 3.85 L Hgb 10.5 L Hct 32.7 L MCV 84.9 MCH 27.3 MCHC 32.1 RDW Std Deviation 41.0 RDW Coeff of Angel Luis 13.3 Plt Count 232 MPV 9.3 Immature Gran % (Auto) 0.300 Neut % (Auto) 75.5 H Lymph % (Auto) 15.0 L [place] % (Auto) 7.3 Eos % (Auto) 1.5 Baso % (Auto) 0.4 Absolute Neuts (auto) 7.6 Absolute Lymphs (auto) 1.51 Nucleated RBC % 0 Sodium 137 Potassium 4.3 Chloride 107 Carbon Dioxide 27.0 Anion Gap 3 L BUN 24 H Creatinine 1.17 H Estim Creat Clear Calc 40.84 Est GFR (MDRD) Af Amer 59 L Est GFR (MDRD) Non-Af 49 L BUN/Creatinine Ratio 20.5 H Glucose 144 H Calcium 8.1 L Troponin I High Sens 3 < 3 L Radiography Diagnostic Testing: Clinical Impression(s) from Imaging Studies Chest X-Ray 08/05/21 20:15 IMPRESSION: There are no acute findings. Electronically Signed: Clinton Heredia MD at 20:35 EDT , EKG Initial EKG: Comments: EKG done for near syncopal episode read by me shows sinus rhythm with mild bradycardic rate at 59. No acute ST elevation or depression. No ventricular ectopy. WV interval, QRS duration and QTc are all normal. Discharge Plan Triage Chief Complaint: Nausea/Vomiting ED Provider: Jr Raza Dx/Rx/DC Orders Clinical Impression: Near syncope, Bleeding from wound Instructions: ED Fainting, Uncertain Cause Prescriptions: No Action buspirone 30 MG tablet 15 mg PO TID RF: 0 lisinopril 5 MG tablet 5 mg PO BID RF: 0 melatonin 10 MG capsule 10 mg PO QHS RF: 0 L.acidoph, paracasei,B. lactis 1 EACH capsule 1 ea PO TID RF: 0 polyethylene glycol 3350 17 GM powder in packet 1 dose PO DAILY RF: 0 omeprazole 40 MG capsule,delayed release(DR/EC) 40 mg PO DAILY RF: 0 simvastatin 20 MG tablet 20 mg PO QHS RF: 0 famotidine 20 MG tablet 20 mg PO QHS RF: 0 magnesium oxide 400 MG tablet 800 mg PO DAILY RF: 0 albuterol sulfate 2.5 MG/3 ML solution for nebulization 2.5 mg INHALATION Q6H PRN PRN (Reason: Asthma) RF: 0 Primary Care Provider: Kenia Jain Referrals: Maximo Childers MD [STAFF PHYSICIAN] - Keep Patel appointment Kenia Jain DO [Primary Care Provider] - 3-5 Days Disposition Disposition: Home, Self Care
--- NOTE | 2021-08-05 20:12 | ED.RN ---
Pt's iv from EMS would not draw blood. Second iv placed in right wrist would not draw blood either. straight stick to right AC, slow draw, unable to get blood. told Dr. Raza we would get xray and finish her fluids then see if we could get blood from her.
--- NOTE | 2021-08-05 20:15 | RAD_ITS ---
STUDY: X-RAY CHEST REASON FOR EXAM: Female, 71 years old. CHEST PAIN chest pain TECHNIQUE: XR Chest 1 View COMPARISON: Prior comparison studies are not available for review at this time. FINDINGS: There is no demonstrated pleural abnormality. Normal size heart. Normal mediastinum and gretchen. Normal visualized pulmonary arteries. There is atherosclerotic calcification of the aortic arch with tortuosity. There are diffuse degenerative changes of the visualized thoracic spine. There is degenerative osteoarthritis of the bilateral shoulders. There is no demonstrated abnormality of the visualized soft tissue structures of the upper abdomen. RAD/Chest 1 View (Portable) IMPRESSION: There are no acute findings. Electronically Signed: Clinton Heredia MD at 20:35 EDT ,
[2021-08-05 21:10] LABS: Absolute Lymphocyte Count 1.51 X10^3/uL (0.83-4.51); Absolute Neutrophil Count 7.6 X10^3/uL (2.0-7.7); Basophil# 0.04 X10^3/uL; Basophil% 0.4 % (0-1); Eosinophil# 0.15 X10^3/uL; Eosinophils% 1.5 % (0-5); Hematocrit 32.7 % (37-47); Hemoglobin 10.5 g/dL (12.0-15.0); Lymphocyte # 1.51 X10^3/ul (0.83-4.51); Mean Corp Hgb Conc 32.1 g/dL (32-36); Mean Corpuscular Hgb 27.3 pg (27.0-32.0); Mean Corpuscular Volume 84.9 fL (81-99); Mean Platelet Vol. 9.3 fl (6.2-12.0); Monocyte# 0.74 X10^3/uL; Monocyte% 7.3 % (0-10); NRBC Flagged by Analyzer 0 % (0-5); Neutrophil % 75.5 % (47-70); Platelet Count 232 K/mm3 (150-450); RBC Distribution Width CV 13.3 % (11.6-14.6); Red Blood Count 3.85 M/mm3 (4.2-5.4); White Blood Count 10.1 K/mm3 (4.4-11.0)
[2021-08-05 21:22] VITALS: BP 119/57; PULSE 71; RESP 14; O2SAT 99
[2021-08-05 21:22] LABS: Anion Gap 3 (5-15); BUN 24 mg/dL (7-18); BUN/Creat Ratio 20.5 RATIO (10-20); Calcium,Total 8.1 mg/dL (8.5-10.1); Chloride 107 mmol/L (98-107); Creatinine, Serum 1.17 mg/dL (0.55-1.02); EST Glomerular Filtration Rate 49 mL/min (>60); Est Glom Filt Rate - Afr Amer 59 mL/min (>60); Estimated Creatinine Clearance 40.84 ml/min; Glucose 144 mg/dL (74-106); Potassium 4.3 mmol/L (3.5-5.1); Sodium Level 137 mmol/L (136-145); Troponin-I HS (w/2H Reflex) 3 pg/mL (3.0-54.0)
[2021-08-05 21:23] LABS: Reflex Troponin-HS? (from REC) N
[2021-08-05 23:29] LABS: Troponin-I HS < 3 pg/mL (3.0-54.0)
[2021-08-05 23:48] VITALS: RESP 18
== END 2021-08-05 23:49 | disposition home or self-care (01) ==
PROVIDERS: Emergency Provider Emergency Medicine; PCP Internal Medicine; Visit Provider Emergency Medicine
DX: R55 Syncope and collapse (principal); R11.2 Nausea with vomiting, unspecified; D64.9 Anemia, unspecified; N64.59 Other signs and symptoms in breast
CPT/HCPCS: 71045; 80048; 84484; 85025; 93005; A4216

== ENCOUNTER → 2022-05-02 | Outpatient (CLI) | payer MEDICARE, OTHER, SELFPAY ==
--- NOTE | 2022-05-02 12:56 | RAD_ITS ---
INDICATION: pain in thoracic spine -- pain in thoracic spine EXAMINATION/TECHNIQUE: X-RAY - XR Spine Thoracic 3 Views: AP, lateral and swimmer''s views COMPARISON: Chest CT from 03/23/2018 FINDINGS: VERTEBRAE: Preserved vertebral body heights. No fracture or suspicious osseous lesion. No spondylolisthesis. Preservation of the normal thoracic kyphosis. Multilevel mild endplate spondylosis and endplate spurring again noted. Thoracic spinal stimulator lead in place. DISCS: Disc spaces are maintained. INCLUDED CHEST/ABDOMEN: No acute abnormalities. RAD/Thoracic Spine 3 Views IMPRESSION: Chronic endplate spondylosis with no evidence of acute thoracic spinal abnormality. Electronically Signed: Jef North MD at 22:16 EST ,
== END | disposition home or self-care (01) ==
LOC: MTRAD 12:56
PROVIDERS: PCP Internal Medicine; Referring Provider Internal Medicine; Visit Provider Internal Medicine
DX: M54.6 Pain in thoracic spine (principal)
CPT/HCPCS: 72072

== ENCOUNTER 2022-06-30 12:00 | Outpatient (RCR) | payer MEDICARE, OTHER, SELFPAY ==
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
--- NOTE | 2022-05-30 09:55 | HP.PTREVAL ---
Dr. Kenia Jain, DO, It has been my pleasure to treat DANNY MINAYA over the last 9 visits for THORACIC DISC BULGE. Please see the progress note below for an update on the physical therapy plan of care! Subjective: PATIENT REPORTS JUN 05 FOLLOW UP FOR CAT SCAN RESULTS FROM PAIN MGMT. HAS SEEN THIS PAIN MGMT DOCTOR ONCE SO FAR (DR. HATHAWAY). PATIENT REPORTS SHE FEELS SHE IS FUNCTIONING WITH BETTER POSTURE AND POSTURAL AWARENESS NOW BUT HER PAIN HASN'T CHANGED. I SEEM TO HAVE MORE STRENGTH SO I CAN CARRY MYSELF FURTHER IN MY TASKS. SHE REPORTS SHE CAN DO TASKS WITH LESS PAIN NOW BY USING BETTER POSTURE AND BODY MECHANICS THAT SHE HAS LEARNED HERE IN PT. PATIENT REPORTS SHE LIKES THE WATER THERAPY. STATES THE LAST SESSION WAS EXHAUSTING AND HARD BUT DIDN'T HAVE PAIN - I WAS REALLY TIRED. Objective/Function: PATIENT WAS SEEN TODAY FOR RE-ASSESSMENT OF PROGRESS TOWARD THE SET PT GOALS AND THE NEED FOR FURTHER PHYSICAL THERAPY VS READINESS FOR DISCHARGE. PATIENT IS A GOOD CANDIDATE TO CONTINUE AQUATIC THERAPY BASED ON PROGRESS MADE AND ROOM FOR FURTHER IMPROVEMENT. PATIENT IS AGREEABLE. UPON EXAM TODAY: ROM deficit: CHANDLER SHLD ELEVATION TO APPROX 165 DEG AND PATIENT DENIES PAIN WITH TESTING STATING SHE DOES THIS STRETCH EVERYDAY. Motor deficit: CHANDLER UE AND LE STRENGTH GROSSLY 4-/5 WITH MMT'ING IN MID-RANGE. STRENGTH TESTED CAREFULLY TO MINIMIZE ANY PAIN AND PATIENT TOLERATED LIGHT TESTING WELL. Dural Signs: POSITIVE LLE. Lumbar mvmt loss: flex - NIL. ext - MOD. R SG - MOD. L SG - MOD. Core strength: POOR. Cervical Mvmt Loss: Flex: NIL. Pro: NIL. Ext: MOD. Ret: MOD. RSB: MIN. LSB: MOD. R Rot: MOD. L Rot: MOD TO ZAC. PATIENT REPORTS FEELING STIFF AND RIDGID WITH CERVICAL ROM TESTING AND PULLING IN HER BACK BUT NOT PAIN. THORACIC MVMT LOSS: MOD INTO ALL PLANES AND PATIENT REPORTS THE MVMTS ARE HARD BUT NOT PAINFUL. AT END OF TESTING TODAY SHE STATES I DON'T HAVE ANY PAIN RIGHT NOW. Plan Plan: *MONITOR CLOSELY FOR NEED FOR REST BREAKS*. CONTINUE AQUATIC THERAPY 2X'S A WK X 5 WKS X 10 VISITS FOR PAIN RELIEF, POSTURE CORRECTION/STRENGTHENING, INSTRUCTION IN APPROPRIATE BODY MECHANICS AND ACTIVITY MODIFICATIONS. DLS STARTING WITH A NEUTRAL SPINE PROGRESSING ROM TOLERATED. CHANDLER UE AND LE ROM, STRETCHING AND STRENGTHENING. HEP INSTRUCTION. PATIENT AGREEABLE TO THIS POC. Balance/Gait/Functional tests - Balance/Special Test Scores Oswestry Low Back Score: 16 Goals Goal 1:: DECREASE C/O BACK AND TRUNK PAIN. Goal Time Frame: 4-6 Weeks Goal Progress: Progressing Goal 2:: IMPROVE PERSONAL CARE, LIFTING, SITTING, STANDING, SOCIAL LIFE, TRAVEL AND HOMEMAKING FUNCTION. Goal Time Frame: 4-6 Weeks Goal Progress: Not Progressing Goal 3:: INSTRUCT IN PROPHYLAXIS Goal Time Frame: 4-6 Weeks Goal Progress: Not Progressing Anticipated Interventions Patient/Client Instruction: Educate patient on: Condition, Plan of Care, Risk Factors For the Purpose of:: To improve self management Therapeutic Exercise to Include: Strength training, Body mechanics, Postural training, Flexibilty training, Neuromotor development, In an aquatic setting, Dynamic Lumbar Stabilization, Scapular Strength/Stabilization For the Purpose of:: To decrease pain, To increase ROM, To improve muscle performance and motor function, To increase tolerance to activity/condition/position, To improve ability of physical actions for home/community/work/leisure Please do not hesitate to contact me at [phone] by phone or if you have questions or concerns regarding this new plan of care! Sincerely, Sandy Anderson, PT, Cert MDT
--- NOTE | 2022-07-30 11:49 | HP.PT.NRP ---
DANNY MINAYA was seen in my office for initial evaluation on 04/29/22. The following Plan of Care was established for this patient: Initial Frequency: 2-3x /Week Initial Duration: 4-6 Weeks Patient/Client Instruction: Educate patient on: Condition, Plan of Care, Risk Factors For the Purpose of:: To improve self management Therapeutic Exercise to Include: Strength training, Body mechanics, Postural training, Flexibilty training, Neuromotor development, In an aquatic setting, Dynamic Lumbar Stabilization, Scapular Strength/Stabilization For the Purpose of:: To decrease pain, To increase ROM, To improve muscle performance and motor function, To increase tolerance to activity/condition/position, To improve ability of physical actions for home/community/work/leisure This patient was last seen in our office 06/30/22. Pertinent comments regarding their Physical therapy will appear below: This patient has not returned to Physical Therapy and is appropriate to return to MD for further follow-up as needed. At this point I will be discontinuing this patient from physical therapy. I would be happy to see this patient again in the future if found appropriate by the physician. Thank you! Sandy Anderson, PT, Cert MDT Balance/Gait/Functional tests - Balance/Special Test Scores Oswestry Low Back Score: 16
== END 2022-06-30 19:00 | disposition home or self-care (01) ==
LOC: PT 12:00
PROVIDERS: PCP Internal Medicine; Referring Provider Internal Medicine; Visit Provider Internal Medicine
DX: M51.24 Other intervertebral disc displacement, thoracic region (principal)
CPT/HCPCS: 97110; 97113; 97162; 97164; 97530

== ENCOUNTER 2022-08-10 13:30 | Emergency (ER) | payer MEDICARE, OTHER, SELFPAY ==
[2022-08-10] VITALS (9 sets, daily range): BP systolic 136–155; BP diastolic 56–71; PULSE 70–100; RESP 16; TEMP 36.1; O2SAT 97–99; BMI 27.3
--- NOTE | 2022-08-10 13:44 | CT_ITS ---
INDICATION: Confusion EXAMINATION: CT Head or Brain W/O Contrast Injection TECHNIQUE: Multiple axial images were obtained of the head without intravenous contrast. A radiation dose optimization technique was used for this scan. IV Contrast dosage and agent: None. COMPARISON: None. FINDINGS: BRAIN PARENCHYMA: No intra- or extra-axial hemorrhage. No evidence of acute infarct. No intracranial mass or mass effect. No vasogenic edema. There is preservation of the frias/white matter interface. Mild parenchymal volume loss and small vessel ischemic disease change. Posterior fossa structures are unremarkable. CSF SPACES: Appropriate for age. No hydrocephalus. Basal cisterns are patent. No abnormal extra-axial fluid collection. CALVARIUM, SKULL BASE, PARANASAL SINUSES AND MASTOID AIR CELLS: Clear. No discrete lytic or blastic abnormalities. Calvarium is intact. ORBITS: Both globes, extraocular muscles, optic nerves and retrobulbar fat appear unremarkable. ASPECTS Score for Acute Strokes: 10 CT/Brain/Head without Contrast IMPRESSION: No acute intracranial findings. Electronically Signed: Hunter Coppola MD at 14:19 EDT ,
--- NOTE | 2022-08-10 13:47 | EDS_ITS ---
HPI <CANDI Patrick - Last Filed: 08/10/22 19:12> History of Present Illness Chief Complaint: Confusion Narrative Narrative: 72-year-old female with PMH of HLD, GERD, anxiety presents with 3 weeks of new onset visual and auditory hallucinations. She is seeing and hearing people in the television and radio who are giving her detailed instructions. She states she is keeping a log. She states they are not telling her to harm herself or anyone else, more so telling her to have fun. They have given her instructions such as to open new credit cards which she has done over the last 2 days. Her states she has become distrustful of him. Today they went to [employer] and she heard a bird and was following it outside. 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 Patient denies any recent illness or head injury. No history of similar symptoms. She occasionally drinks alcohol but denies other drug use. She has no problems with motor or sensory function or incoordination. PFSH <CANDI Patrick - Last Filed: 08/10/22 19:12> [facility] Medical History (Updated 08/10/22 @ 17:[address] Mima Russell MD) Anxiety Ductal carcinoma in situ (DCIS) of right breast GERD (gastroesophageal reflux disease) HLD (hyperlipidemia) HTN (hypertension) Spinal cord stimulator status Home Medications L.acidoph, paracasei,B. lactis 10 billion cell capsule 1 ea PO TID 01/08/16 [H istory Last Taken Unknown] buspirone 30 mg tablet 15 mg PO TID 01/08/16 [History Last Taken 07/20/20] lisinopril 5 mg tablet 5 mg PO BID 01/08/16 [History Last Taken 07/20/20] melatonin 10 mg capsule 10 mg PO QHS 01/08/16 [History Last Taken Unknown] omeprazole 40 mg capsule,delayed release 40 mg PO DAILY 03/23/18 [History Last Taken 07/20/20] polyethylene glycol 3350 17 gram oral powder packet 1 dose PO DAILY 03/23/18 [History Last Taken Unknown] simvastatin 20 mg tablet 20 mg PO QHS 03/23/18 [History Last Taken Unknown] famotidine 20 mg tablet 20 mg PO QHS 07/17/20 [History Last Taken Unknown] magnesium oxide 800 mg PO DAILY 07/17/20 [History Last Taken Unknown] Allergy/AdvReac Type Severity Reaction Status Date / Time prochlorperazine Allergy Laryngospas Verified 08/10/22 13:39 [From Compazine] ms trimethobenzamide Allergy Laryngospas Verified 08/10/22 13:39 [From Tigan] ms procaine [From Novocain] AdvReac Severe SEIZURES Verified 08/10/22 13:39 Pertussis Vaccines AdvReac Hives Verified 08/10/22 13:39 Family History (Updated 08/10/22 @ 17:[address] Mima Russell MD) Mother Alzheimer disease Brother Alcoholism Father COPD (chronic obstructive pulmonary disease) Surgical History Hx laparoscopic cholecystectomy Hx of breast biopsy Hx of unilateral salpingectomy Social History Smoking Status: Never smoker alcohol intake: current details: social substance use type: does not use caffeine: Yes seatbelt use: always do you feel safe at home: Yes additional social history: retired ROS <CANDI Patrick - Last Filed: 08/10/22 19:12> ROS ED ROS Narrative Constitutional: Negative for fever, chills, malaise. Eyes: Negative for visual change. CVS: Negative for palpitations, chest pain. Respiratory: Negative for shortness of breath, cough. GI: Negative for abdominal pain, nausea, vomiting, diarrhea. : Negative for dysuria, frequency. Neuro: Negative for headache, motor/sensory dysfunction. EXAM <CANDI Patrick - Last Filed: 08/10/22 19:12> Physical Exam Narrative Exam Narrative: CONST: Patient sitting in no acute distress. EYES: Normal inspection. PERRLA, EOMI. ENT: Normal inspection, moist mucous membranes. NECK: Normal inspection. RESP: No respiratory distress, CTAB. CVS: Regular rate and rhythm, no murmur, no gallop. SKIN: Color normal, no rash, warm, dry, intact. EXTREMITIES: Normal appearance, no pedal edema. NEURO: Oriented x4. 5/5 upper and lower extremity strength, normal sensation, normal finger-nose bilaterally. PSYCH: Normal affect. Seems to have insight into reporting hallucinations. Const Vital Signs: 08/10/22 13:31 08/10/22 14:30 08/10/22 16:00 Temperature 97.0 F L Temperature Source Temporal Pulse Rate 100 89 86 Respiratory Rate 16 16 16 Blood Pressure 155/71 H 141/56 H 146/66 H Blood Pressure Mean 99 84 92 Pulse Ox 97 99 99 Oxygen Delivery Method Room Air Room Air Room Air 08/10/22 17:00 08/10/22 18:00 Temperature Temperature Source Pulse Rate Respiratory Rate 16 16 Blood Pressure Blood Pressure Mean Pulse Ox Oxygen Delivery Method <Dr. Brittney Perez DO - Last Filed: 08/10/22 15:58> Physical Exam Const Vital Signs: 08/10/22 13:31 08/10/22 14:30 08/10/22 16:00 Temperature 97.0 F L Temperature Source Temporal Pulse Rate 100 89 86 Respiratory Rate 16 16 16 Blood Pressure 155/71 H 141/56 H 146/66 H Blood Pressure Mean 99 84 92 Pulse Ox 97 99 99 Oxygen Delivery Method Room Air Room Air Room Air 08/10/22 17:00 08/10/22 18:00 Temperature Temperature Source Pulse Rate Respiratory Rate 16 16 Blood Pressure Blood Pressure Mean Pulse Ox Oxygen Delivery Method MDM <CANDI Patrick - Last Filed: 08/10/22 19:12> [facility] Narrative Medical decision making narrative: History gathered from: Patient and Patient having 3 weeks of new onset visual and auditory hallucinations. Not in by for evaluation. On exam she has insight tells me she is having these hallucinations. She is fully alert and oriented and neurologically intact. CBC and BMP overall unremarkable. Creatinine of 1.25 is around her baseline. Alcohol and drug screen are negative. UA is contaminated and will be cultured?she has no urinary symptoms I do not think antibiotics are warranted at this point. CT brain shows no acute findings. At this time no medical cause has been found to explain her symptoms. She is medically cleared for evaluation by crisis. Crisis working on placement to [facility] psych facility. Differential: Dementia, psychiatric illness, electrolyte abnormality or infectious etiology I have personally performed a face to face assessment of the patient and have reviewed the CRISTAL Note. I performed a substantive portion of the visit including all aspects of the following. My mon findings include: History is [patient presents with 3-week history of auditory and visual hallucinations. states that she would just shut down and will not want to talk to them at times. Today she disappeared from [employer] as they were walking and and when they found her she stated that she had heard a bird and wanted to see what kind of bird it was. 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 Patient will hear music and just started dancing. She had COVID about a month ago. No new medications. She denies any falls or head injuries. She denies recent illness otherwise.] Exam is [HEENT-PERRLA, EOMI. Cranial nerves II through XII grossly intact. TMs clear. Mucous membranes moist. No adenopathy. Cardiovascular-regular rate and rhythm without murmur or ectopy Lungs-clear to auscultation, chest wall stable without crepitus or subcu emphysema Abdomen-normoactive bowel sounds, soft, nontender, no rebound or rigidity, no peritoneal signs. Extremities-intact ?4, normal range of motion, normal pulses, atraumatic] Medical Decison Making [patient had a CT scan of the brain without contrast that was unremarkable. CBC with differential was normal. Chemistries and LFTs were normal. Alcohol was negative head urinalysis ordered and pending.] Etiology of her hallucinations unclear. We will have crisis evaluate for possible [facility] psych placement. Other additions or changes: [None] Lab Data Attestation: I reviewed the patient's lab results. Labs: Laboratory Results - last 24 hr 08/10/22 08/10/22 08/10/22 13:51 13:51 13:51 WBC 7.4 RBC 4.40 Hgb 12.0 Hct 38.0 MCV 86.4 MCH 27.3 MCHC 31.6 L RDW Std Deviation 44.9 H RDW Coeff of Angel Luis 14.2 Plt Count 272 MPV 8.9 Immature Gran % (Auto) 0.300 Neut % (Auto) 64.4 Lymph % (Auto) 24.5 Spink % (Auto) 9.5 Eos % (Auto) 0.8 Baso % (Auto) 0.5 Absolute Neuts (auto) 4.8 Absolute Lymphs (auto) 1.81 Nucleated RBC % 0 Sodium 136 Potassium 4.2 Chloride 105 Carbon Dioxide 25.0 Anion Gap 6 BUN 17 Creatinine 1.25 H Estim Creat Clear Calc 37.68 Est GFR (MDRD) Af Amer 54 L Est GFR (MDRD) Non-Af 45 L BUN/Creatinine Ratio 13.6 Glucose 113 H Calcium 8.6 Total Bilirubin 0.40 AST 26 ALT 26 Alkaline Phosphatase 50 Total Protein 7.4 Albumin 3.8 Globulin 3.6 Albumin/Globulin Ratio 1.1 Urine Color Urine Clarity Urine pH Ur Specific [place] Urine Protein Urine Glucose (UA) Urine Ketones Urine Occult Blood Urine Nitrite Urine Bilirubin Urine Urobilinogen Ur Leukocyte Esterase Urine RBC Urine WBC Ur Squamous Epith Cells Amorphous Sediment Urine Bacteria Urine Mucus Urine Opiates Screen Urine Methadone Screen Ur Barbiturates Screen Ur Phencyclidine Scrn Ur Amphetamines Screen MDMA (Ecstasy) Screen U Benzodiazepines Scrn Urine Cocaine Screen U Cannabinoids Screen Ur Drug Screen Comment Ethyl Alcohol < 3.0 08/10/22 08/10/22 15:01 15:01 WBC RBC Hgb Hct MCV MCH MCHC RDW Std Deviation RDW Coeff of Angel Luis Plt Count MPV Immature Gran % (Auto) Neut % (Auto) Lymph % (Auto) Spink % (Auto) Eos % (Auto) Baso % (Auto) Absolute Neuts (auto) Absolute Lymphs (auto) Nucleated RBC % Sodium Potassium Chloride Carbon Dioxide Anion Gap BUN Creatinine Estim Creat Clear Calc Est GFR (MDRD) Af Amer Est GFR (MDRD) Non-Af BUN/Creatinine Ratio Glucose Calcium Total Bilirubin AST ALT Alkaline Phosphatase Total Protein Albumin Globulin Albumin/Globulin Ratio Urine Color Yellow Urine Clarity Sl. Cloudy Urine pH 6.5 Ur Specific [place] 1.010 Urine Protein Negative Urine Glucose (UA) Normal Urine Ketones Negative Urine Occult Blood Negative Urine Nitrite Negative Urine Bilirubin Negative Urine Urobilinogen Normal Ur Leukocyte Esterase 100 H Urine RBC 0 SEEN Urine WBC 10-25 SEEN Ur Squamous Epith Cells 10-25 SEEN Amorphous Sediment 1+ URATE Urine Bacteria RARE Urine Mucus 0 SEEN Urine Opiates Screen NEGATIVE Urine Methadone Screen NEGATIVE Ur Barbiturates Screen NEGATIVE Ur Phencyclidine Scrn NEGATIVE Ur Amphetamines Screen NEGATIVE MDMA (Ecstasy) Screen NEGATIVE U Benzodiazepines Scrn NEGATIVE Urine Cocaine Screen NEGATIVE U Cannabinoids Screen NEGATIVE Ur Drug Screen Comment Ethyl Alcohol Radiography Diagnostic Testing: Clinical Impression(s) from Imaging Studies Brain CT 08/10/22 13:44 IMPRESSION: No acute intracranial findings. Electronically Signed: Hunter Coppola MD at 14:19 EDT , ED attending interpretation of CT brain shows no evidence of large tumor or hemorrhage. <Dr. Brittney Perez, DO - Last Filed: 08/10/22 15:58> [facility] Narrative Medical decision making narrative: I have personally performed a face to face assessment of the patient and have reviewed the CRISTAL Note. I performed a substantive portion of the visit including all aspects of the following. My mon findings include: History is [patient presents with 3-week history of auditory and visual halluci nations. states that she would just shut down and will not want to talk to them at times. Today she disappeared from [facility]odoxy as they were walking and and when they found her she stated that she had heard a bird and wanted to see what kind of bird it was. 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 Patient will hear music and just started dancing. She had COVID about a month ago. No new medications. She denies any falls or head injuries. She denies recent illness otherwise.] Exam is [HEENT-PERRLA, EOMI. Cranial nerves II through XII grossly intact. TMs clear. Mucous membranes moist. No adenopathy. Cardiovascular-regular rate and rhythm without murmur or ectopy Lungs-clear to auscultation, chest wall stable without crepitus or subcu emphysema Abdomen-normoactive bowel sounds, soft, nontender, no rebound or rigidity, no peritoneal signs. Extremities-intact ?4, normal range of motion, normal pulses, atraumatic] Medical Decison Making [patient had a CT scan of the brain without contrast that was unremarkable. CBC with differential was normal. Chemistries and LFTs were normal. Alcohol was negative head urinalysis ordered and pending.] Etiology of her hallucinations unclear. We will have crisis evaluate for possible [facility] psych placement. Other additions or changes: [None] Lab Data Labs: Laboratory Results - last 24 hr 08/10/22 08/10/22 08/10/22 13:51 13:51 13:51 WBC 7.4 RBC 4.40 Hgb 12.0 Hct 38.0 MCV 86.4 MCH 27.3 MCHC 31.6 L RDW Std Deviation 44.9 H RDW Coeff of Angel Luis 14.2 Plt Count 272 MPV 8.9 Immature Gran % (Auto) 0.300 Neut % (Auto) 64.4 Lymph % (Auto) 24.5 Spink % (Auto) 9.5 Eos % (Auto) 0.8 Baso % (Auto) 0.5 Absolute Neuts (auto) 4.8 Absolute Lymphs (auto) 1.81 Nucleated RBC % 0 Sodium 136 Potassium 4.2 Chloride 105 Carbon Dioxide 25.0 Anion Gap 6 BUN 17 Creatinine 1.25 H Estim Creat Clear Calc 37.68 Est GFR (MDRD) Af Amer 54 L Est GFR (MDRD) Non-Af 45 L BUN/Creatinine Ratio 13.6 Glucose 113 H Calcium 8.6 Total Bilirubin 0.40 AST 26 ALT 26 Alkaline Phosphatase 50 Total Protein 7.4 Albumin 3.8 Globulin 3.6 Albumin/Globulin Ratio 1.1 Urine Color Urine Clarity Urine pH Ur Specific [place] Urine Protein Urine Glucose (UA) Urine Ketones Urine Occult Blood Urine Nitrite Urine Bilirubin Urine Urobilinogen Ur Leukocyte Esterase Urine RBC Urine WBC Ur Squamous Epith Cells Amorphous Sediment Urine Bacteria Urine Mucus Urine Opiates Screen Urine Methadone Screen Ur Barbiturates Screen Ur Phencyclidine Scrn Ur Amphetamines Screen MDMA (Ecstasy) Screen U Benzodiazepines Scrn Urine Cocaine Screen U Cannabinoids Screen Ur Drug Screen Comment Ethyl Alcohol < 3.0 08/10/22 08/10/22 15:01 15:01 WBC RBC Hgb Hct MCV MCH MCHC RDW Std Deviation RDW Coeff of Angel Luis Plt Count MPV Immature Gran % (Auto) Neut % (Auto) Lymph % (Auto) Spink % (Auto) Eos % (Auto) Baso % (Auto) Absolute Neuts (auto) Absolute Lymphs (auto) Nucleated RBC % Sodium Potassium Chloride Carbon Dioxide Anion Gap BUN Creatinine Estim Creat Clear Calc Est GFR (MDRD) Af Amer Est GFR (MDRD) Non-Af BUN/Creatinine Ratio Glucose Calcium Total Bilirubin AST ALT Alkaline Phosphatase Total Protein Albumin Globulin Albumin/Globulin Ratio Urine Color Yellow Urine Clarity Sl. Cloudy Urine pH 6.5 Ur Specific [place] 1.010 Urine Protein Negative Urine Glucose (UA) Normal Urine Ketones Negative Urine Occult Blood Negative Urine Nitrite Negative Urine Bilirubin Negative Urine Urobilinogen Normal Ur Leukocyte Esterase 100 H Urine RBC 0 SEEN Urine WBC 10-25 SEEN Ur Squamous Epith Cells 10-25 SEEN Amorphous Sediment 1+ URATE Urine Bacteria RARE Urine Mucus 0 SEEN Urine Opiates Screen NEGATIVE Urine Methadone Screen NEGATIVE Ur Barbiturates Screen NEGATIVE Ur Phencyclidine Scrn NEGATIVE Ur Amphetamines Screen NEGATIVE MDMA (Ecstasy) Screen NEGATIVE U Benzodiazepines Scrn NEGATIVE Urine Cocaine Screen NEGATIVE U Cannabinoids Screen NEGATIVE Ur Drug Screen Comment Ethyl Alcohol Radiography Diagnostic Testing: Clinical Impression(s) from Imaging Studies Brain CT 08/10/22 13:44 IMPRESSION: No acute intracranial findings. Electronically Signed: Hunter Coppola MD at 14:19 EDT , EKG Initial EKG: Attestation: I personally reviewed and interpreted this EKG as follows: Comments: Sinus rhythm with a rate of 97 bpm with no acute ST segment changes Discharge Plan Triage Chief Complaint: Confusion Other Complaint: Dizziness ED Midlevel Provider: Cary Serrano ED Provider: Brittney Perez Dx/Rx/DC Orders Prescriptions: No Action buspirone 30 MG tablet 15 mg PO TID lisinopril 5 MG tablet 5 mg PO BID melatonin 10 MG capsule 10 mg PO QHS L.acidoph, paracasei,B. lactis 1 EACH capsule 1 ea PO TID polyethylene glycol 3350 17 GM powder in packet 1 dose PO DAILY omeprazole 40 MG capsule,delayed release(DR/EC) 40 mg PO DAILY simvastatin 20 MG tablet 20 mg PO QHS famotidine 20 MG tablet 20 mg PO QHS magnesium oxide 400 MG tablet 800 mg PO DAILY Primary Care Provider: Kneia Jain Referrals: Kenia Jain DO [Primary Care Provider] -
[2022-08-10 14:02] LABS: Absolute Lymphocyte Count 1.81 X10^3/uL (0.83-4.51); Absolute Neutrophil Count 4.8 X10^3/uL (2.0-7.7); Basophil# 0.04 X10^3/uL; Basophil% 0.5 % (0-1); Eosinophil# 0.06 X10^3/uL; Eosinophils% 0.8 % (0-5); Lymphocyte # 1.81 X10^3/ul (0.83-4.51); Lymphocyte % 24.5 % (19-41); Mean Corp Hgb Conc 31.6 g/dL (32-36); Mean Corpuscular Hgb 27.3 pg (27.0-32.0); Mean Corpuscular Volume 86.4 fL (81-99); Mean Platelet Vol. 8.9 fl (6.2-12.0); Monocyte% 9.5 % (0-10); NRBC Flagged by Analyzer 0 % (0-5); Neutrophil # 4.77 X10^3/uL (2.7-7.7); Neutrophil % 64.4 % (47-70); Platelet Count 272 K/mm3 (150-450); RBC Distribution Width CV 14.2 % (11.6-14.6); RBC Distribution Width SD 44.9 fl (35.1-43.9); White Blood Count 7.4 K/mm3 (4.4-11.0)
[2022-08-10 14:14] LABS: Alcohol, Blood (Medical)-Serum < 3.0 mg/dL
[2022-08-10 14:19] LABS: ALB/GLOB Ratio 1.1 RATIO (0.9-2.4); AST(SGOT) 26 U/L (15-37); Alanine Aminotransfer ALT/SGPT 26 U/L (13-56); Albumin, Serum 3.8 g/dL (3.2-5.0); Alkaline Phosphatase 50 U/L (45-117); Anion Gap 6 (5-15); BUN 17 mg/dL (7-18); BUN/Creat Ratio 13.6 RATIO (10-20); Calcium,Total 8.6 mg/dL (8.5-10.1); Chloride 105 mmol/L (98-107); Creatinine, Serum 1.25 mg/dL (0.55-1.02); EST Glomerular Filtration Rate 45 mL/min (>60); Est Glom Filt Rate - Afr Amer 54 mL/min (>60); Estimated Creatinine Clearance 37.68 ml/min; Globulin 3.6 g/dL (2.2-4.2); Glucose 113 mg/dL (74-106); Potassium 4.2 mmol/L (3.5-5.1); Protein, Total 7.4 g/dL (6.4-8.2); Sodium Level 136 mmol/L (136-145)
[2022-08-10 15:06] LABS: Mucous, Urine 0 SEEN /hpf (<or=2+); Red Blood Cells-Urine 0 SEEN /hpf (0-5)
[2022-08-10 15:20] LABS: Color, Urine Yellow (Yellow); Glucose, Dipstick Normal (Normal); Ketone-Dipstick Negative (Negative); Leukocyte Esterase-Dipstick 100 /ul (Negative); Nitrite-Dipstick Negative (Negative); Occult Blood-Urine Negative /ul (Negative); Protein-Dipstick Negative (Negative); Urine Bilirubin Dipstick Negative (Negative); Urine Clarity Sl. Cloudy (Clear); Urine Urobilinogen Normal (Normal); Urine pH 6.5 (5.0 - 8.0)
[2022-08-10 15:51] LABS: Amphetamine Urine VISTA NEGATIVE (<1000 ng/mL); Barbiturate Urine VISTA NEGATIVE (< 200 ng/mL); Benzodiazepine Urine VISTA NEGATIVE (< 200 ng/mL); Cocaine Urine VISTA NEGATIVE (< 300 ng/mL); Ecstacy Urine VISTA NEGATIVE (< 500 ng/mL); Methadone Urine VISTA NEGATIVE (< 300 ng/mL); PCP Urine VISTA NEGATIVE (< 25 ng/mL); THC Urine VISTA NEGATIVE (< 50 ng/mL); Vista UDS pH Range 6
[2022-08-10 15:52] LABS: White Blood Cells 10-25 SEEN /hpf (0-5)
--- NOTE | 2022-08-10 15:52 | NURSING ---
FAXED CHART TO CRISIS
[2022-08-10 15:53] LABS: Amorphous Sediment 1+ URATE; Bacteria RARE /hpf (None Seen); Squamous Epithelial Cells - UA 10-25 SEEN /hpf (5-10)
--- NOTE | 2022-08-10 17:47 | NURSING ---
JEAN, [facility], IN ROOM
[2022-08-10] MEDS: LORazepam 2 MG/ML Syringe 0.5 MG IV (19:15)
[2022-08-10] MEDS: Acetaminophen 325 MG Tablet 650 MG PO (21:11)
== END 2022-08-10 22:55 ==
LOC: ED 14:07
PROVIDERS: Physician Assistant; Emergency Provider Emergency Medicine; PCP Internal Medicine; Visit Provider Emergency Medicine
DX: R42 Dizziness and giddiness (principal); R44.3 Hallucinations, unspecified; E78.5 Hyperlipidemia, unspecified; F41.9 Anxiety disorder, unspecified; I10 Essential (primary) hypertension; R41.0 Disorientation, unspecified; Z79.899 Other long term (current) drug therapy; K21.9 Gastro-esophageal reflux disease without esophagitis
CPT/HCPCS: 70450; 80053; 80307; 81001; 82077; 85025; 87086; 87088; 87426; 93005; 96374; 99285; A4216

== ENCOUNTER → 2023-03-20 | Outpatient (CLI) | payer MEDICARE, OTHER, SELFPAY ==
[2023-03-20 15:40] LABS: Hematocrit 41.9 % (37-47); Hemoglobin 13.3 g/dL (12.0-15.0); Mean Corp Hgb Conc 31.7 g/dL (32-36); Mean Corpuscular Hgb 28.7 pg (27.0-32.0); Mean Corpuscular Volume 90.5 fL (81-99); Mean Platelet Vol. 9.9 fl (6.2-12.0); Platelet Count 206 K/mm3 (150-450); RBC Distribution Width CV 13.2 % (11.6-14.6); RBC Distribution Width SD 43.4 fl (35.1-43.9); Red Blood Count 4.63 M/mm3 (4.2-5.4)
[2023-03-20 16:01] LABS: Erythrocyte Sedimentation Rate 2 mm/hr (0-30)
[2023-03-20 16:31] LABS: ALB/GLOB Ratio 1.1 RATIO (0.9-2.4); AST(SGOT) 22 U/L (15-37); Alanine Aminotransfer ALT/SGPT 27 U/L (13-56); Albumin, Serum 3.7 g/dL (3.2-5.0); Alkaline Phosphatase 40 U/L (45-117); Anion Gap 9 (5-15); BUN 20 mg/dL (7-18); CRP < 2.90 mg/L (0.0-3.0); Calcium,Total 8.8 mg/dL (8.5-10.1); Chloride 105 mmol/L (98-107); Creatinine, Serum 1.11 mg/dL (0.55-1.02); EST Glomerular Filtration Rate 52 mL/min (>60); Est Glom Filt Rate - Afr Amer 62 mL/min (>60); Globulin 3.5 g/dL (2.2-4.2); Glucose 94 mg/dL (74-106); Potassium 4.3 mmol/L (3.5-5.1); Protein, Total 7.2 g/dL (6.4-8.2); Sodium Level 139 mmol/L (136-145)
== END | disposition home or self-care (01) ==
LOC: MTLAB 13:32
PROVIDERS: PCP Internal Medicine; Referring Provider Internal Medicine; Visit Provider Internal Medicine
DX: R63.4 Abnormal weight loss (principal)
CPT/HCPCS: 36415; 80053; 85027; 85652; 86140

== ENCOUNTER → 2023-04-06 | Outpatient (CLI) | payer MEDICARE, OTHER, SELFPAY ==
--- NOTE | 2023-04-06 14:42 | CT_ITS ---
STUDY: CT ABDOMEN AND PELVIS WITH CONTRAST REASON FOR EXAM: Female, 73 years old. Weight loss. Back pain. History of breast cancer. RADIATION DOSAGE (If Supplied By Facility): CTDIvol = ( 14.18 ) mGy, DLP = ( 409.16 ) mGycm TECHNIQUE: Transaxial images were obtained from the dome of the diaphragm to the symphysis pubis with oral contrast. Oral and amp;amp; IV Readi-CAT and amp;amp; 100mL Isovue-300 was administered. Sagittal and coronal images were reconstructed. Individualized dose optimization techniques were used for this CT. COMPARISON: None. FINDINGS: Findings suggesting mild scarring along the anterior aspect of the lingular segment of the left upper lobe and right middle lobe. The visualized portions of the heart are within normal limits. Normal liver. The gallbladder is contracted. Normal spleen. Normal pancreas. Normal bilateral adrenal glands. Normal right kidney. Normal left kidney. Normal visualized stomach. Normal small intestine. Moderate amount of fecal material is seen in the colon. The appendix is visualized and appears normal. There is scattered atherosclerotic calcification of the abdominal aorta, without a demonstrated aneurysm. Normal inferior vena cava. Normal retroperitoneum. Normal urinary bladder. A battery pack of the spinal cord stim related devices seen overlying the left gluteal region. Normal abdominal wall. Normal osseous structures. CT/Abdomen/Pelvis WITH Contrast IMPRESSION: No acute abnormality is seen. Electronically Signed: Zhou Amaro MD at 15:35 EST ,
== END | disposition home or self-care (01) ==
LOC: CT 14:42
PROVIDERS: PCP Internal Medicine; Referring Provider Internal Medicine; Visit Provider Internal Medicine
DX: R63.4 Abnormal weight loss (principal)
CPT/HCPCS: 74177; Q9967

== ENCOUNTER → 2023-04-15 | Outpatient (CLI) | payer MEDICARE, OTHER, SELFPAY ==
--- NOTE | 2023-04-15 10:20 | NM_ITS ---
CLINICAL: 73-year-old female with history of postprandial epigastric and abdominal pain. SEMI-SOLID PHASE 99m Tc SULFUR COLLOID GASTRIC EMPTYING STUDY COMPARISON: None available FINDINGS: The patient was administered 1.1 mCi of 99m Tc sulfur colloid mixed with oatmeal and consumed per os. Image acquisitions in the anterior-posterior projections were obtained for 60 minutes. There is prompt visualization of the stomach. There is no gastroesophageal reflux identified. First order kinetics are maintained throughout the duration of the acquisitions. The T ? linear fit was extrapolated to be 78.32 minutes, (Normal: 12-56 minutes). NM/Gastric Emptying Study IMPRESSION: 1. ABNORMAL 99m Tc sulfur colloid semi-solid phase (oatmeal) gastric emptying imaging examination. A. There is delayed semi-solid phase gastric emptying compared to normal controls. (Anderson et al, J Nucl Med Tech 38: 186, 2010). Electronically Signed: Dirk Malik DO at 23:59 EST ,
== END | disposition home or self-care (01) ==
LOC: NM 10:20
PROVIDERS: PCP Internal Medicine; Referring Provider Internal Medicine; Visit Provider Internal Medicine
DX: R10.13 Epigastric pain (principal)
CPT/HCPCS: 78264; A9541

== ENCOUNTER → 2023-05-12 | Outpatient (CLI) | payer MEDICARE, OTHER, SELFPAY ==
--- NOTE | 2023-05-12 13:43 | CT_ITS ---
INDICATION: NODULE EXAMINATION: CT CHEST WITHOUT CONTRAST - CT Chest W/O Contrast Injection TECHNIQUE: Helically acquired images were obtained of the chest. A radiation dose optimization technique was used for this scan. IV Contrast dosage and agent: None. RADIATION DOSAGE (If Supplied By Facility): CTDIvol = ( 6.29 ) mGy, DLP = ( 237.51 ) mGycm COMPARISON: CTA of the chest of 03/23/2018. FINDINGS: LUNGS, PLEURA AND LARGE AIRWAYS: Mild stranding in the lingula and right middle lobe likely due to scarring. No evidence of pulmonary nodules. No focal infiltrate is seen. No pleural effusion or thickening. No pneumothorax. THYROID: No thyroid lesions. HEART AND PERICARDIUM: Heart size is normal. No pericardial effusion. CORONARY ARTERIES: Minimal coronary calcifications. VESSELS: Thoracic aorta is not dilated. Atherosclerotic calcifications. MEDIASTINUM AND DELMIS: No mediastinal or hilar adenopathy. Esophagus is unremarkable. No hiatal hernia. Surgical clips in the right breast. UPPER ABDOMEN: No acute pathology. Status post cholecystectomy. BONES: No suspicious lytic or blastic abnormality. Old fractures of right ribs. CT/Chest without Contrast IMPRESSION: 1. No evidence of pulmonary nodules. Lung RADS category 1, continued annual screening CT chest without contrast. 2. No mass, adenopathy or focal acute pulmonary infiltrate. Electronically Signed: Dorian Wilson MD at 14:36 EST ,
== END | disposition home or self-care (01) ==
LOC: CT 13:41
PROVIDERS: PCP Internal Medicine; Referring Provider Internal Medicine Pulmonary Disease; Visit Provider Internal Medicine Pulmonary Disease
DX: R91.1 Solitary pulmonary nodule (principal)
CPT/HCPCS: 71250

== ENCOUNTER → 2023-07-21 | Outpatient (CLI) | payer MEDICARE, OTHER, SELFPAY ==
--- NOTE | 2023-07-21 10:17 | US_ITS ---
INDICATION: EPIGASTRIC PAIN EXAMINATION: Ultrasound US Abdomen Limited (quadrant) TECHNIQUE: Raymond scale and color doppler imaging was performed of the right upper quadrant. COMPARISON: CT scan of the abdomen and pelvis of 04/06/2023 FINDINGS: LIVER: There is normal echotexture measuring about 12 cm in length. The portal vein is patent with normal hepatopedal flow. No focal hepatic lesion. There is no free fluid. GALLBLADDER AND BILIARY TREE: Status post cholecystectomy. The proximal common bile duct measures 5 mm, which is within normal limits for the patient''s age. Sonographic Nelson''s sign: Not assessed. PANCREAS: The pancreas as seen on this examination is not enlarged. Right kidney: The right kidney measures 10 cm in length. The renal cortex measures 8 mm. No evidence of hydronephrosis. Possible duplicated right collecting system. US/Abdomen Limited IMPRESSION: Status post cholecystectomy. No evidence of biliary dilatation. Electronically Signed: Dorian Wilson MD at 14:51 EDT ,
== END | disposition home or self-care (01) ==
LOC: US 10:16
PROVIDERS: PCP Internal Medicine; Referring Provider Internal Medicine; Visit Provider Internal Medicine
DX: R10.13 Epigastric pain (principal)
CPT/HCPCS: 76705

== ENCOUNTER 2023-10-14 12:50 | Emergency (ER) | payer MEDICARE, OTHER, SELFPAY ==
[2023-10-14] VITALS (7 sets, daily range): BP systolic 125–149; BP diastolic 47–68; PULSE 63–80; RESP 16–21; TEMP 35.6–36.8; O2SAT 96–100; BMI 21.6
--- NOTE | 2023-10-14 13:11 | EX.ED.DYSGE1 ---
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 lactis 10 1 ea PO TID 01/08/16 Unknown History billion cell capsule lisinopril 5 mg tablet 5 mg PO BID 01/08/16 07/20/20 History buspirone 15 mg tablet See Rx Instructions .Route 02/24/23 Unknown Rx .COMPLEX #90 tabs buspirone 30 mg tablet 30 mg PO QHS 90 days #90 tabs 02/24/23 Unknown Rx aripiprazole 2 mg tablet (Abilify) 2 mg PO DAILY 90 days #90 tabs 08/12/23 Unknown Rx omeprazole 20 mg capsule,delayed 20 mg PO BID 10/14/23 Unknown History release simvastatin 20 mg tablet 20 mg PO QHS 10/14/23 Unknown History tamoxifen 20 mg tablet 20 mg PO DAILY 10/14/23 Unknown History Allergy/AdvReac Type Severity Reaction Status Date / Time prochlorperazine (From Allergy Laryngospas Verified 10/14/23 12:54 Compazine) ms trimethobenzamide (From Allergy Laryngospas Verified 10/14/23 12:54 Tigan) ms procaine (From Novocain) AdvReac Severe SEIZURES Verified 10/14/23 12:54 Pertussis Vaccines AdvReac Hives Verified 10/14/23 12:54 Family History Mother Alzheimer disease Brother Alcoholism Father COPD (chronic obstructive pulmonary disease) Surgical History Hx laparoscopic cholecystectomy Hx of breast biopsy Hx of unilateral salpingectomy Social History Smoking Status: Never smoker alcohol intake: current details: social substance use type: does not use caffeine: Yes seatbelt use: always do you feel safe at home: Yes additional social history: retired EXAM Physical Exam Const Vital Signs: 10/14/23 12:51 10/14/23 14:11 10/14/23 14:45 Temperature 96.1 F L Temperature Source Temporal Pulse Rate 71 65 Respiratory Rate 16 20 H Blood Pressure 131/61 H 125/47 H Blood Pressure Mean 84 70 Pulse Ox 96 Oxygen Delivery Method Room Air Room Air 10/14/23 15:00 10/14/23 15:30 10/14/23 15:45 Temperature Temperature Source Pulse Rate 66 63 Respiratory Rate 18 21 H Blood Pressure 138/55 H 139/57 H 149/68 H Blood Pressure Mean 79 80 90 Pulse Ox 100 99 Oxygen Delivery Method 10/14/23 16:00 Temperature Temperature Source Pulse Rate 63 Respiratory Rate 17 Blood Pressure 129/64 H Blood Pressure Mean 79 Pulse Ox 100 Oxygen Delivery Method MDM MDM MDM Narrative Medical decision making narrative: HISTORY OF PRESENT ILLNESS: 73-year-old female presents with concern for syncope. Notes approximately 5 hours prior to arrival she passed out hitting the back of her head. She currently complains of dizziness fatigue and headache. Denies any neck pain. Denies any focal neurologic deficits. Denies any recent volume loss such as vomiting or diarrhea. Denies any recent bleeding diathesis. Denies any family or personal history of connective tissue disorders. Denies any chest pain or shortness of breath REVIEW OF SYSTEMS: Pertinent positives: Dizziness fatigue headache Pertinent negatives: Chest pain, shortness of breath, bleeding diathesis, vomiting, diarrhea PHYSICAL EXAM: Nursing triage notes reviewed, Vital signs reviewed Constitutional: please see mdm HENT: MMM Eyes: Pupils equal round and reactive to light, Extraocular muscles intact Neck: No stridor, no JVD, full neck ROM Lungs: Clear to auscultation, No wheezing or rales. No increased work of breathing, no conversational dyspnea, no accessory muscle use, no nasal flaring. No respiratory distress noted Heart: Regular rate and rhythm, No murmurs, No rubs and No gallops, 2+ distal pulses (radial, femoral, posterior tibial) in all extremities Abdomen: Soft, there is no tenderness, rigidity, rebound or guarding, no obvious peritoneal signs, no palpable pulsatile abdominal masses, no auscultated abdominal bruit : No CVAT Extremities: No edema Neuro: Alert and oriented x3, neuro exam at baseline, cranial nerves II through XII are intact. No pain with extraocular muscle movement. There is negative test of skew. 5 of 5 strength in upper and lower extremities in flexion extension. Intact sensation to light touch in upper and lower extremity dermatomes. No truncal or extremity ataxia. No dysdiadochokinesia. Normal gait. 2+ reflexes in upper and lower extremities. No meningeal signs. Negative Babinski. NIH of 0. Skin: No rash or lesions noted MEDICAL DECISION MAKING: Chief Complaint: Dizziness fatigue headache head trauma syncope External records reviewed: Imaging reviewed: CT scan of the brain from 2022 shows no acute findings Factors affecting care: GERD, hyperlipidemia Social determinants of health: Brief psychotic disorder, anxiety History obtained from others: Patient's Consults: none MDM Narrative: The patient was hemodynamically stable, afebrile and nontoxic-appearing. Primary secondary trauma surveys concerning for intracranial normality given signs of trauma to the posterior occiput and fall with head trauma and age greater than 65. I considered the following differential diagnosis: ICH, arrhythmia, anemia, electrolyte disturbance, dehydration, ACS, PE, dissection, subarachnoid hemorrhage, AAA The patient had no focal neurologic deficits, risk factors to suggest subarachnoid hemorrhage. Abdomen soft nontender no auscultated bruits or pulsatile masses to suggest AAA. I obtained a broad lab and imaging workup to further elucidate the etiology patient complaints. I gave the patient normal saline ALL IMAGES (IF OBTAINED) HAVE BEEN PERSONALLY REVIEWED AND INTERPRETED BY MYSELF. I have personally reviewed the patient's chest x-ray. Chest x-ray is unremarkable for pulmonary edema, pneumothorax, pneumonia or focal cardiopulmonary abnormality. CT scan of the brain shows no evidence of intracranial normality High-sensitivity troponin is negative, no evidence of myocardial ischemia x2 EKG with normal sinus rhythm, normal axis, normal intervals, no STEMI CBC with leukocytosis consistent with systemic inflammation, no significant anemia or thrombocytopenia BMP without significant dehydration, evidence of endorgan hypoperfusion, metabolic acidosis, electrolyte abnormality BNP within the limits suggestive of no increased ventricular stretch, heart failure The synthesis of the patient's history, physical exam, labs images suggest no acute life-limiting etiology. While the etiology of the patient's presentation remains uncertain for vital signs, labs images do not suggest a life or limb threatening pathology. No signs of myocardial ischemia, significant anemia, dehydration, metabolic acidosis, electrolyte abnormality, pneumothorax, heart failure. The Patient is appropriate for discharge home with close outpatient follow-up for outpatient testing including echocardiogram and further cardiac workup. The patient and/or family, caregivers express understanding. The patient and/or family, caregivers agrees with the plan. Shared decision making: I will have a discussion with the patient and or visitors regarding risk/benefits of further testing or admission. They will be made aware of of the risk/benefits inherent in this decision they will be given the opportunity to voice understanding. Total critical care time today provided was at least 0 minutes. This excludes separately billable procedures. Critical care time (if documented) is secondary to the patient having high probability of clinically significant/life threatening deterioration in the patient's condition which required my urgent intervention. Impression: 1. Vasovagal syncope 2. Head trauma 3. Closed head injury Dispo: Discharge home This note was generated with GTRAN dictation software. It may contain incorrect words, spelling, and punctuation that were not noted in review of the chart prior to signing. Lab Data Labs: Laboratory Results - last 24 hr 10/14/23 10/14/23 13:20 15:27 WBC 11.2 H RBC 4.89 Hgb 14.3 Hct 44.1 MCV 90.2 MCH 29.2 MCHC 32.4 RDW Std Deviation 41.3 RDW Coeff of Angel Luis 12.5 Plt Count 216 MPV 8.9 Immature Gran % (Auto) 0.400 Neut % (Auto) 77.3 H Lymph % (Auto) 15.0 L Tompkins % (Auto) 6.5 Eos % (Auto) 0.4 Baso % (Auto) 0.4 Absolute Neuts (auto) 8.6 H Absolute Lymphs (auto) 1.68 Nucleated RBC % 0 Sodium 136 Potassium 4.2 Chloride 104 Carbon Dioxide 29.0 Anion Gap 3 L BUN 28 H Creatinine 1.14 H Estim Creat Clear Calc 40.73 Est GFR (MDRD) Af Amer 60 Est GFR (MDRD) Non-Af 50 L BUN/Creatinine Ratio 24.6 H Glucose 100 Calcium 8.8 Magnesium 2.2 Troponin I High Sens 4 5 B-Natriuretic Peptide 13.6 Radiography Diagnostic Testing: Clinical Impression(s) from Imaging Studies Brain CT 10/14/23 13:12 IMPRESSION: Chronic involutional changes of the brain. Electronically Signed: Zhou Amaro MD at 13:36 EDT , Chest X-Ray 10/14/23 13:25 IMPRESSION: Hyperinflation. No acute abnormality is seen. Electronically Signed: Zhou Amaro MD at 13:37 EDT , Discharge Plan Triage Chief Complaint: Syncope ED Provider: Chaim Vee Dx/Rx/DC Orders Instructions: ED Fainting, Vagal Reaction Prescriptions: No Action buspirone 30 mg tablet 30 mg PO QHS 90 Days Qty: 90 2RF buspirone 15 mg tablet See Rx Instructions .ROUTE .COMPLEX Qty: 90 1RF Dose Instruction: TAKE 1 TABLET EVERY MORNING Rx Instructions: TAKE 1 TABLET EVERY MORNING lisinopril 5 MG tablet 5 mg PO BID Thaoacidmirna, goodB. lactis 1 EACH capsule 1 ea PO TID simvastatin 20 mg tablet 20 mg PO QHS omeprazole 20 mg capsule,delayed release(DR/EC) 20 mg PO BID tamoxifen 20 mg tablet 20 mg PO DAILY aripiprazole [Abilify] 2 mg tablet 2 mg PO DAILY 90 Days Qty: 90 1RF Primary Care Provider: Kenia Jain Referrals: Emanuel Ardon MD [Med Staff - Active Staff] - Kenia Jain, [Primary Care Provider] - Activity Restrictions/Additional Instructions: Thank you for trusting us with your care today! Please take Tylenol (2 pills, 650 mg), ibuprofen (2 pills, 400 mg) every 6 hours as needed for pain and fever control. Please drink plenty of fluids and eat a healthy diet. Please return to the emergency department if your symptoms change or worsen. Please follow with your primary care physician for further outpatient evaluation and management. Print Language: Slovenian Disposition Disposition: Home, Self Care
--- NOTE | 2023-10-14 13:12 | CT_ITS ---
STUDY: CT BRAIN WITHOUT CONTRAST REASON FOR EXAM: Female, 73 years old. Head trauma RADIATION DOSAGE (If Supplied By Facility): CTDIvol = ( 47.06 ) mGy, DLP = ( 925.62 ) mGycm TECHNIQUE: Transaxial CT imaging of the brain was performed without administration of intravenous contrast material. Individualized dose optimization techniques were used for this CT. COMPARISON: Comparison is made with prior study dated August 10, 2022. FINDINGS: Normal soft tissue structures. Normal calvarium. There is mild cerebral atrophy with widening of the extra-axial spaces and ventricular dilatation. Normal white matter tracts of the cerebral hemispheres. Normal basal ganglia and thalami. Normal brainstem. Normal cerebellum. There is no intracranial hemorrhage. There are no findings of an acute ischemic infarction. Atherosclerotic plaque formation of the cavernous portions of the internal carotid arteries bilaterally. Normal visualized paranasal sinuses. CT/Brain/Head without Contrast IMPRESSION: Chronic involutional changes of the brain. Electronically Signed: Zhou Amaro MD at 13:36 EDT ,
--- NOTE | 2023-10-14 13:12 | EKG12_ITS ---
Test Reason : Blood Pressure : / mmHG Vent. Rate : 064 BPM Atrial Rate : 064 BPM P-R Int : 124 ms QRS Dur : 082 ms QT Int : 404 ms P-R-T Axes : 051 048 061 degrees QTc Int : 416 ms Normal sinus rhythm Normal ECG Confirmed by XENIA ESPINOZA MD ([id number]), telegraph editor AVELINO CAPONE ([id number]) on 10/19/2023 11:36:13 AM Referred By: MITZI Confirmed By:XENIA ESPINOZA MD
[2023-10-14] MEDS: 0.9% Normal Saline (1000mL) 1,000 ML 999 ML IV (13:17)
[2023-10-14 13:25] LABS: Absolute Lymphocyte Count 1.68 X10^3/uL (0.83-4.51); Absolute Neutrophil Count 8.6 X10^3/uL (2.0-7.7); Basophil# 0.04 X10^3/uL; Basophil% 0.4 % (0-1); Eosinophil# 0.04 X10^3/uL; Eosinophils% 0.4 % (0-5); Hematocrit 44.1 % (37-47); Hemoglobin 14.3 g/dL (12.0-15.0); Lymphocyte # 1.68 X10^3/ul (0.83-4.51); Mean Corp Hgb Conc 32.4 g/dL (32-36); Mean Corpuscular Hgb 29.2 pg (27.0-32.0); Mean Corpuscular Volume 90.2 fL (81-99); Mean Platelet Vol. 8.9 fl (6.2-12.0); Monocyte# 0.73 X10^3/uL; Monocyte% 6.5 % (0-10); NRBC Flagged by Analyzer 0 % (0-5); Neutrophil # 8.63 X10^3/uL (2.7-7.7); Neutrophil % 77.3 % (47-70); Platelet Count 216 K/mm3 (150-450); RBC Distribution Width CV 12.5 % (11.6-14.6); RBC Distribution Width SD 41.3 fl (35.1-43.9); Red Blood Count 4.89 M/mm3 (4.2-5.4); White Blood Count 11.2 K/mm3 (4.4-11.0)
--- NOTE | 2023-10-14 13:25 | RAD_ITS ---
STUDY: X-RAY CHEST REASON FOR EXAM: Female, 73 years old. Chest pain TECHNIQUE: Single AP portable view of the chest. COMPARISON: Comparison is made with prior study dated August 05, 2021. FINDINGS: EKG electrodes are seen. Surgical clips are seen overlying the right breast. A spinal cord stimulator device is seen with the electrode at the level of the T3 vertebrae. Hyperinflation. No acute abnormality is seen. There is no demonstrated pleural abnormality. Normal size heart. Normal mediastinum and gretchen. Normal visualized pulmonary arteries. There is atherosclerotic calcification of the aortic arch with tortuosity. There are diffuse degenerative changes of the visualized thoracic spine. Normal visualized ribs, clavicles, and shoulders. There is no demonstrated abnormality of the visualized soft tissue structures of the upper abdomen. RAD/Chest 1 View (Portable) IMPRESSION: Hyperinflation. No acute abnormality is seen. Electronically Signed: Zhou Amaro MD at 13:37 EDT ,
[2023-10-14 14:05] LABS: BNP,B-Type NATRIURETIC PEPTIDE 13.6 pg/mL (0-100)
[2023-10-14 14:09] LABS: Anion Gap 3 (5-15); BUN 28 mg/dL (7-18); BUN/Creat Ratio 24.6 RATIO (10-20); Calcium,Total 8.8 mg/dL (8.5-10.1); Chloride 104 mmol/L (98-107); Creatinine, Serum 1.14 mg/dL (0.55-1.02); EST Glomerular Filtration Rate 50 mL/min (>60); Est Glom Filt Rate - Afr Amer 60 mL/min (>60); Estimated Creatinine Clearance 40.73 ml/min; Glucose 100 mg/dL (74-106); Magnesium 2.2 mg/dL (1.6-2.6); Potassium 4.2 mmol/L (3.5-5.1); Sodium Level 136 mmol/L (136-145); Troponin-I HS (w/2H Reflex) 4 pg/mL (3.0-54.0)
[2023-10-14 15:22] LABS: Reflex Troponin-HS? (from REC) Y
[2023-10-14 15:56] LABS: Troponin-I HS 5 pg/mL (3.0-54.0)
== END 2023-10-14 16:46 | disposition home or self-care (01) ==
PROVIDERS: Emergency Provider Emergency Medicine; PCP Internal Medicine; Visit Provider Emergency Medicine
DX: R55 Syncope and collapse (principal); F29 Unspecified psychosis not due to a substance or known physiological condition; F41.9 Anxiety disorder, unspecified; E78.5 Hyperlipidemia, unspecified; K21.9 Gastro-esophageal reflux disease without esophagitis; S09.90XA Unspecified injury of head, initial encounter; Z90.49 Acquired absence of other specified parts of digestive tract; I10 Essential (primary) hypertension; W18.00XA Striking against unspecified object with subsequent fall, initial encounter; R07.9 Chest pain, unspecified; R53.83 Other fatigue; R42 Dizziness and giddiness; R51.9 Headache, unspecified
CPT/HCPCS: 70450; 71045; 80048; 83735; 83880; 84484; 85025; 93005; 99284; J7030; A4216

== ENCOUNTER → 2023-11-19 | Outpatient (CLI) | payer MEDICARE, OTHER, SELFPAY ==
--- NOTE | 2023-11-19 06:48 | ECHOD_ITS ---
Reason For Study: SYNCOPE/COLLAPSE Procedure This was a 2D Doppler, Color Flow transthoracic echocardiogram. Exam performed in department. Left Ventricle Normal LV size. Left ventricular systolic function is normal. The left ventricular ejection fraction is 65 %. Stage 1 diastolic dysfunction. No regional wall motion abnormalities noted. Right Ventricle Normal right ventricle. Normal systolic function. Atria Normal left atrium. Normal right atrium. Mitral Valve Bileaflet diffuse mitral valve thickening. Tricuspid Valve Normal tricuspid valve. Mild (1+) tricuspid valve insufficiency. Pulmonary artery systolic pressure is 32 mmHg. Aortic Valve Normal aortic valve. Mild (1+) eccentric aortic valve insufficiency. Pulmonic Valve Normal pulmonic valve. Great Vessels Normal aortic root. The pulmonary artery is normal size. Inferior vena cava collapse with respiration. Pericardium/Pleural No pericardial effusion. MMode/2D Measurements & Calculations LVIDd: 4.3 cm IVSd: 0.74 cm Ao root diam: 3.0 cm LVIDs: 2.7 cm LVPWd: 0.77 cm RVDd: 3.4 cm FS: 36.0 % LAV(MOD-bp): 47.3 ml LVAd ap4: 21.6 cm2 SV(MOD-sp4): 34.5 ml LAV(MOD-bp) Indexed: 28.1 ml/m2 LVLd ap4: 6.9 cm LAV(MOD-sp2): 44.6 ml EDV(MOD-sp4): 54.6 ml LAV(MOD-sp4): 46.2 ml EDV(sp4-el): 57.7 ml LVAs ap4: 11.3 cm2 LVLs ap4: 5.4 cm ESV(MOD-sp4): 20.1 ml ESV(sp4-el): 19.8 ml EF(MOD-sp4): 63.2 % EF(sp4-el): 65.7 % SV(sp4-el): 37.9 ml LA A4 area: 16.9 cm2 LA dimension(2D): 3.1 cm RA A4 area: 8.5 cm2 TAPSE: 2.0 cm Time Measurements MV dec time: 0.23 sec Doppler Measurements & Calculations MV E max mikael: 109.3 cm/sec Lat Peak E' Mikael: 7.5 cm/sec Med Peak E' Mikael: 6.7 cm/sec MV A max mikael: 124.2 cm/sec E/E' lat: 14.5 E/E' med: 16.3 MV E/A: 0.88 MV V2 max: 130.5 cm/sec MV P1/2t max mikael: 110.8 cm/sec Ao V2 max: 141.7 cm/sec MV max P.8 mmHg MV P1/2t: 70.7 msec Ao max P.1 mmHg MV V2 mean: 56.3 cm/sec Ao V2 mean: 98.9 cm/sec MV mean P.7 mmHg MV dec slope: 459.4 cm/sec2 Ao mean P.4 mmHg MV V2 VTI: 34.2 cm MVA(P1/2t): 3.1 cm2 Ao V2 VTI: 40.0 cm AV (velocity ratio): 0.79 AI max mikael: 316.8 cm/sec LV V1 max: 123.4 cm/sec PA V2 max: 92.8 cm/sec AI max P.2 mmHg LV V1 max P.1 mmHg PA V2 mean: 66.0 cm/sec LV V1 mean P.0 mmHg AI dec slope: 160.8 cm/sec2 LV V1 mean: 79.9 cm/sec AI P1/2t: 576.9 msec LV V1 VTI: 31.5 cm TR max mikael: 266.1 cm/sec TR max P.3 mmHg ECHO/Echo Complete Interpretation Summary Normal LV size. Left ventricular systolic function is normal. The left ventricular ejection fraction is 65 %. Stage 1 diastolic dysfunction. Bileaflet diffuse mitral valve thickening. Pulmonary artery systolic pressure is 32 mmHg. Mild (1+) eccentric aortic valve insufficiency. Ordering Physician: Emanuel Ardon Referring Physician: Kenia Jain Performed By: Christina Lanza, RDCS, RVT
[2023-11-19 08:12] LABS: Absolute Lymphocyte Count 1.95 X10^3/uL (0.83-4.51); Absolute Neutrophil Count 4.5 X10^3/uL (2.0-7.7); Basophil# 0.05 X10^3/uL; Basophil% 0.7 % (0-1); Eosinophils% 1.4 % (0-5); Hematocrit 45.9 % (37-47); Hemoglobin 14.7 g/dL (12.0-15.0); Lymphocyte # 1.95 X10^3/ul (0.83-4.51); Lymphocyte % 26.7 % (19-41); Mean Corpuscular Volume 90.5 fL (81-99); Monocyte# 0.65 X10^3/uL; Monocyte% 8.9 % (0-10); NRBC Flagged by Analyzer 0 % (0-5); Neutrophil # 4.51 X10^3/uL (2.7-7.7); Neutrophil % 61.9 % (47-70); Platelet Count 201 K/mm3 (150-450); RBC Distribution Width CV 12.5 % (11.6-14.6); RBC Distribution Width SD 40.7 fl (35.1-43.9); Red Blood Count 5.07 M/mm3 (4.2-5.4); White Blood Count 7.3 K/mm3 (4.4-11.0)
[2023-11-19 09:03] LABS: ALB/GLOB Ratio 0.9 RATIO (0.9-2.4); AST(SGOT) 26 U/L (15-37); Alanine Aminotransfer ALT/SGPT 21 U/L (13-56); Albumin, Serum 3.6 g/dL (3.2-5.0); Alkaline Phosphatase 61 U/L (45-117); Anion Gap 4 (5-15); BUN 16 mg/dL (7-18); Calcium,Total 8.9 mg/dL (8.5-10.1); Chloride 106 mmol/L (98-107); Cholesterol 174 mg/dL (200); Creatinine, Serum 1.14 mg/dL (0.55-1.02); EST Glomerular Filtration Rate 50 mL/min (>60); Est Glom Filt Rate - Afr Amer 60 mL/min (>60); Globulin 3.8 g/dL (2.2-4.2); Glucose 89 mg/dL (74-106); High Density Lipoprotein 88 mg/dL; Potassium 4.7 mmol/L (3.5-5.1); Protein, Total 7.4 g/dL (6.4-8.2); Sodium Level 139 mmol/L (136-145); Thyroid Stim Hormone (TSH) 0.88 uIU/mL (0.358-3.74); Triglycerides 140 mg/dL; Very Low Density Lipoprotein 28 mg/dL (5-40)
== END | disposition home or self-care (01) ==
PROVIDERS: PCP Internal Medicine; Referring Provider Internal Medicine Cardiovascular Disease; Visit Provider Internal Medicine Cardiovascular Disease
DX: I10 Essential (primary) hypertension (principal); F41.9 Anxiety disorder, unspecified; E55.9 Vitamin D deficiency, unspecified; R55 Syncope and collapse
CPT/HCPCS: 36415; 80053; 80061; 82306; 84443; 85025; 93306

== ENCOUNTER 2024-04-14 13:00 | Outpatient (RCR) | payer MEDICARE, OTHER, SELFPAY ==
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
--- NOTE | 2024-04-14 14:17 | HP.PTDCSUM ---
Discharge Summary D/C summary: It has been my pleasure to treat DANNY MINAYA referred by Dr. Kenia Jain DO, with the diagnosis of MIXED URINARY INCONTINENCE for a total of 7 visit(s). Discharge Date: 04/14/24 Please see the following information for a summary of their discharge status. Subjective Subjective: UPON ARRIVAL TO PT TODAY PATIENT STATES I FEEL NORMAL. SHE STATES I ONLY HAD THAT ONE EPISODE OF LEAKING IN 3 WEEKS. Overall Improvement % Improvement: 100 Objective Objective/Function: PATIENT WAS SEEN TODAY FOR RE-ASSESSMENT OF PROGRESS TOWARD THE SET PT GOALS AND THE NEED FOR FURTHER PHYSICAL THERAPY VS READINESS FOR DISCHARGE. THIS PATIENT WAS PROGRESSING NICELY WITH PT AND ONCE SHE SAW DR. ALCOCER AND STARTED GEMTESA SHE REALLY TURNED THE CORNER. SHE HAS CONSISTENTLY ATTENDED AND PARTICIPATED IN PHYSICAL THERAPY AND IS NOW INDEP WITH A HEP. SHE IS NOT CURRENTLY REPORTING ANY UI SYMPTOMS AND SHE IS GETTING STRONGER. SHE IS APPROPRIATE FOR AND AGREEABLE TO DISCHARGE AT THIS POINT. FUNCTIONAL SCREEN: Incontinence Impact Questionnaire Score: 0 (6 at initial evaluation) Urogenital Distress Inventory Score: 0 (8 at initial evaluation). Goals Goal 1:: DECREASE URINARY LEAKAGE EPISODES TO ONE OR LESS PER DAY Goal Progress: Goal Met Goal 2:: PATIENT WILL SUCCESSFULLY DELAY VOIDING LONG NEEDED WHEN URGENCY OCCURS TO SUCCESSFULLY MAKE IT TO THE BATHROOM. Goal Progress: Goal Met Goal 3:: PATIENT WILL DEMONSTRATE/COMMUNICATE 10 CONSISTENT AND CONSECUTIVE 10 SECOND PELVIC FLOOR MUSCLE CONTRACTIONS TO DEMONSTRATE IMPROVED PELVIC FLOOR ENDURANCE. Goal Progress: Progressing Goal 4:: DEVELOP HEALTHY FLUID INTAKE HABITS WITH FLUID INTAKE OF ? BODY WEIGHT IN OUNCES PER DAY AND 2/3 BEING WATER. Goal Progress: Goal Met Goal 5:: NORMALIZE VOIDING FREQUENCEY TO EVERY 3-4 HOURS. Goal Progress: Goal Met Goal 6:: PATIENT WILL BE INDEP WITH A HEP/HOME INSTRUCTIONS FOR CONTINUED IMPROVEMENT ONCE FORMAL PHYSICAL THERAPY CONCLUDES. Goal Progress: Goal Met Plan Plan: D/C D/C Information d/c sentence: If there are questions or concerns regarding this patient's physical therapy, please feel free to call me at [phone]. Thank you for the referral of this patient. Sincerely, Sandy Anderson, PT, Cert MDT Balance/Gait/Functional tests Improvement % Improvement: 100
== END 2024-04-14 19:00 | disposition home or self-care (01) ==
LOC: PT 13:00
PROVIDERS: PCP Internal Medicine; Referring Provider Internal Medicine; Visit Provider Internal Medicine
DX: N39.46 Mixed incontinence (principal)
CPT/HCPCS: 97162; 97530

== ENCOUNTER → 2024-05-10 | Outpatient (CLI) | payer MEDICARE, OTHER, SELFPAY ==
--- NOTE | 2024-05-10 08:33 | BD_ITS ---
STUDY: DUAL ENERGY X-RAY ABSORPTIOMETRY / DXA REASON FOR EXAM: Female, 74 years old. 627.8Menopausal postmenopausalBONE DENSITY REASON FOR EXAM -- Postmenopausal status TECHNIQUE: Bone Mineral Density (BMD) measurements of lumbar spine and bilateral hips were obtained. COMPARISON: Comparison is made with prior study dated June 14, 2020. FINDINGS: Lumbar Spine (L1-L4): g/cm2 (0.999) / T-score (-0.4) / Z-score (1.8) Findings are suggestive of normal bone density with a low fracture risk. Left Femur Total: g/cm2 (0.948) / T-score (0.1) / Z-score (1.7) Left Femoral Neck: g/cm2 (0.723) / T-score (-1.1) / Z-score (0.8) Right Femur Total: g/cm2 (0.901) / T-score (-0.3) / Z-score (1.3) Right Femoral Neck: g/cm2 (0.690) / T-score (-1.4) / Z-score (0.5) The T-Scores on the most recent prior examination were: Lumbar Spine (L1-L4): There has been worsening of bone density since the previous examination. Left Femur Total: which represents a worsening of 6.6%. Right Femur Total: which represents a worsening of 10%. BD/Dexa Bone Density Study IMPRESSION: The patient is considered osteopenic as outlined below according to [employer] Organization (WHO) criteria with a low fracture risk. There has been worsening of bone density since the previous examination. Reference Information: The T-score is the number of standard deviations above or below the standard which is normal for young adults at their peak bone mineral density. The World Health Organization (WHO) interprets the T-scores as follows: Above -1 Normal bone density Between -1 and -2.5 Osteopenia Equal to / or below -2.5 Osteoporosis As a practical clinical guideline, osteopenia may be graded as follows: Mild -1 through -1.5 Moderate -1.6 through -2.0 Severe -2.1 through -2.4 The Z-score is the number of standard deviations above or below age-matched controls. A Z-score of less than -1.5 would be considered abnormal. References: 1. NIH Osteoporosis and Related Bone Diseases www osteo.org 2. International Society for Clinical Densitometry www iscd.org 3. National Osteoporosis Foundation www nof.org Electronically Signed: Zhou Amaro MD at 12:06 EST ,
== END | disposition home or self-care (01) ==
PROVIDERS: PCP Internal Medicine; Referring Provider Internal Medicine; Visit Provider Internal Medicine
DX: Z78.0 Asymptomatic menopausal state (principal)
CPT/HCPCS: 77080